=== PATIENT | male | born 1945 | race Caucasian/White ===

== ENCOUNTER 2016-11-03 17:03 | Inpatient (IN) | payer MEDICARE ==
[~2016-11-03] VITALS: Ht 185.4 cm; Wt 88.4 kg
[~2016-11-03 17:03] MED LIST: DABI150 PO; FLUTPOW; LISI-360 PO; LOVA20TA PO; METO50CR PO; NEUR300C PO; NOVO7030P2 SQ; PERC5TAB12 PO; SULF1TAB47 PO; TAB-TAB PO; TAMS0.4C67 PO; VITA500T10 PO
[2016-11-03 17:07] VITALS: BP 104/43; PULSE 65; RESP 16; TEMP 97.9; O2SAT 100
[2016-11-03] MEDS ORDERED: METO-426 PO (17:39)
[2016-11-03] MEDS ORDERED: LYRI150C PO (17:39)
[2016-11-03] MEDS ORDERED: N7030SS SQ (17:39)
[2016-11-03] MEDS ORDERED: PLAV75TA29 PO (17:39)
[2016-11-03] MEDS ORDERED: PRAD150C PO (17:39)
--- NOTE | 2016-11-03 17:53 | PD ---
HPI Chief Complaint: Abnormal Results Time Seen by Provider: 17:32 Travel History International Travel<30 days: No Contact w/Intl Traveler<30days: No Traveled to known affect area: No History of Present Illness HPI This 70-year-old male was sent by his physician because he was found to have a hemoglobin of 7.5. His been having dizzy spells and shortness of breath increasing over the last few months. He had gone to his vest front presser who did not find any problems. He went to his primary care doctor who did blood work today and found the hemoglobin to be 7.5. The patient has a history of diabetes. Over 30 years. 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 He also has a history of atrial fibrillation and is on Pradaxa as well as Plavix. He has not noted any blood in his stool. He does have hypochromic microcytic indices. He did have a colonoscopy with Dr. Braden one time [facility] Past Medical History Hx Anticoagulant Therapy: Yes (PRADAXA, PLAVIX) Arthritis: No Asthma: No Atrial Fibrillation: Yes (had ablation 12/2012) Autoimmune Disease: No Anxiety: No Depression: No Heart Rhythm Problems: Yes Cancer: Yes (SKIN) Cardiovascular Problems: Yes (ATR. FIB (ABLATED)) High Cholesterol: Yes Chemotherapy: No Chest Pain: No Congestive Heart Failure: No COPD: No Cerebrovascular Accident: No Diabetes: Yes (DM 38 YRS NOW) Patient Takes Glucophage: No Diminished Hearing: No Endocrine: Yes Gastrointestinal Disorders: No GERD: No Glaucoma: No Genitourinary: Yes (NEUROGENIC BLADDER/ SELF CATHS) Hepatitis: No Hiatal Hernia: No Hypertension: Yes Immune Disorder: No Kidney Stones: No Musculoskeletal: Yes (OSTEOMYLITIS LEFT LEG) Neurologic: Yes (NEUROPATHY LEGS) Psychiatric: No Reproductive: No Respiratory: No Integumentary: Yes (bl great toe ulcer) Migraines: No Radiation Therapy: No Renal Failure: No Seizures: No Sickle Cell Disease: No Sleep Apnea: No Thyroid Disease: No Ulcer: Yes (SKIN) Tetanus Vaccination: < 5 Years Influenza Vaccination: Yes Past Surgical History Abdominal Surgery: No AICD: No Arteriovenous Shunt: No Cardiac Surgery: Yes (afib /ablation X2) Ear Surgery: No Endocrine Surgery: No Eye Surgery: No Genitourinary Surgery: No Gynecologic Surgery: No Insulin Pump: No Joint Replacement: No Neurologic Surgery: No Oral Surgery: Yes (T & A) Pacemaker: Yes Thoracic Surgery: No Tonsillectomy: Yes Other Surgery: Yes (ablasion 2013/tosillectomy 55 years ago) Social History Alcohol Use: Yes (2 BEERS DAILY) Tobacco Use: No Substance Use: No Allergies-Medications (Allergen,Severity, Reaction): Coded Allergies: No Known Allergies (Unverified , 11/03/16) Reported Meds & Prescriptions Reported Meds & Active Scripts Active Reported Novolin 70/30 Inj (Insulin Human Isoph/Insulin Regular) 1,000 Units/10 Ml Inj 28 Units SQ BID Lyrica (Pregabalin) 150 Mg Cap 150 Mg PO BID Plavix (Clopidogrel Bisulfate) 75 Mg Tab 75 Mg PO DAILY Metoprolol Tartrate 75 Mg Tab 75 Mg PO BID Pradaxa (Dabigatran) 150 Mg Cap 150 Mg PO BID Review of Systems General / Constitutional: No: Fever, Chills Eyes: No: Diploplia, Blurred Vision HENT: Positive: Lightheadedness, No: Headaches Cardiovascular: No: Chest Pain or Discomfort Respiratory: Positive: Shortness of Breath, No: Cough Gastrointestinal: No: Nausea, Vomiting Genitourinary: No: Urgency, Frequency Neurologic: No: Weakness Hematologic/Lymphatic: Positive: Easy Bruising Physical Exam Narrative GENERAL: Well-developed male SKIN: Warm and dry. HEAD: Atraumatic. Normocephalic. EYES: Pupils equal and round. No scleral icterus. No injection or drainage. ENT: No nasal bleeding or discharge. Mucous membranes pink and moist. NECK: Trachea midline. No JVD. CARDIOVASCULAR: Regular rate and rhythm. No murmur appreciated. RESPIRATORY: No accessory muscle use. Clear to auscultation. Breath sounds equal bilaterally. GASTROINTESTINAL: Abdomen soft, non-tender, nondistended. Hepatic and splenic margins not palpable. Stool is brown and guaiac positive MUSCULOSKELETAL: No obvious deformities. No clubbing. No cyanosis. No edema. There is an amputation of the left leg NEUROLOGICAL: Awake and alert. No obvious cranial nerve deficits. Motor grossly within normal limits. Normal speech. PSYCHIATRIC: Appropriate mood and affect; insight and judgment normal. Data Data Last Documented VS Vital Signs Date Time Temp Pulse Resp B/P Pulse Ox O2 Delivery O2 Flow Rate FiO2 11/03/16 18:52 110 17 151/84 99 Room Air 11/03/16 17:07 97.9 Orders Electrocardiogram (11/03/16 17:45) Complete Blood Count With Diff (11/03/16 17:45) Comprehensive Metabolic Panel (11/03/16 17:45) Prothrombin Time / Inr (Pt) (11/03/16 17:45) Act Partial Throm Time (Ptt) (11/03/16 17:45) Urinalysis - C+S If Indicated (11/03/16 17:45) Type And Screen (11/03/16 17:45) Ferritin (11/03/16 17:45) Vitamin B12 (11/03/16 17:45) Folate, Serum (11/03/16 17:45) Chest, Single Ap (11/03/16 18:10) Labs Laboratory Tests Test 11/03/16 17:20 White Blood Count 7.0 TH/MM3 Red Blood Count 4.26 MIL/MM3 Hemoglobin 8.3 GM/DL Hematocrit 27.1 % Mean Corpuscular Volume 63.5 FL Mean Corpuscular Hemoglobin 19.4 PG Mean Corpuscular Hemoglobin 30.5 % Concent Red Cell Distribution Width 16.9 % Platelet Count 267 TH/MM3 Mean Platelet Volume 8.4 FL Neutrophils (%) (Auto) 71.2 % Lymphocytes (%) (Auto) 17.8 % Monocytes (%) (Auto) 8.0 % Eosinophils (%) (Auto) 2.2 % Basophils (%) (Auto) 0.8 % Neutrophils # (Auto) 4.9 TH/MM3 Lymphocytes # (Auto) 1.2 TH/MM3 Monocytes # (Auto) 0.6 TH/MM3 Eosinophils # (Auto) 0.2 TH/MM3 Basophils # (Auto) 0.1 TH/MM3 CBC Comment AUTO DIFF Differential Comment AUTO DIFF CONFIRMED Platelet Estimate NORMAL Platelet Morphology Comment NORMAL Ovalocytes 2+ Prothrombin Time 13.9 SEC Prothromb Time International 1.2 RATIO Ratio Activated Partial 35.7 SEC Thromboplast Time Sodium Level 137 MEQ/L Potassium Level 4.1 MEQ/L Chloride Level 102 MEQ/L Carbon Dioxide Level 25.0 MEQ/L Anion Gap 10 MEQ/L Blood Urea Nitrogen 28 MG/DL Creatinine 1.40 MG/DL Estimat Glomerular Filtration 50 ML/MIN Rate Random Glucose 286 MG/DL Calcium Level 8.3 MG/DL Total Bilirubin 0.5 MG/DL Aspartate Amino Transf 11 U/L (AST/SGOT) Alanine Aminotransferase 16 U/L (ALT/SGPT) Alkaline Phosphatase 90 U/L Total Protein 7.0 GM/DL Albumin 3.6 GM/DL [facility] Medical Decision Making Medical Screen Exam Complete: Yes Emergency Medical Condition: Yes Medical Record Reviewed: Yes Differential Diagnosis Differential includes anemia, GI bleed, Narrative Course Patient's hemoglobin here is 8. His EKG shows regular rhythm at a rate of 112 and is interpreted as atrial flutter with rapid response. Chest x-ray shows clear lung liz. His stool guaiac is positive Diagnosis Primary Impression: Anemia Qualified Code: D50.0 - Iron deficiency anemia due to chronic blood loss Additional Impression: GI bleed Qualified Code: K92.2 - Gastrointestinal hemorrhage, unspecified gastrointestinal hemorrhage type Erick Olmedo MD Nov 03, 2016 17:53
[2016-11-03 17:59] LABS: AUTOMATED NEUTROPHIL # 4.9 TH/MM3 (1.8-7.7); BASOPHIL # 0.1 TH/MM3 (0-0.2); BASOPHIL % 0.8 % (0.0-2.0); EOSINOPHIL # 0.2 TH/MM3 (0-0.4); EOSINOPHIL % 2.2 % (0.0-4.0); HEMATOCRIT 27.1 % (39.0-51.0); LYMPH % 17.8 % (9.0-44.0); LYMPHOCYTE # 1.2 TH/MM3 (1.0-4.8); MEAN CELL VOLUME 63.5 FL (80.0-100.0); MEAN CORPUSCULAR HEMOGLOBIN 19.4 PG (27.0-34.0); MEAN CORPUSCULAR HGB CONC 30.5 % (32.0-36.0); NEUT % 71.2 % (16.0-70.0); PLATELET COUNT 267 TH/MM3 (150-450); RED BLOOD COUNT 4.26 MIL/MM3 (4.50-5.90); RED CELL DISTRIBUTION WIDTH 16.9 % (11.6-17.2)
[2016-11-03 18:01] LABS: HEMO FLAGS AUTO DIFF
[2016-11-03 18:07] LABS: CHLORIDE 102 MEQ/L (98-107); POTASSIUM 4.1 MEQ/L (3.5-5.1); SODIUM (NA) 137 MEQ/L (136-145)
[2016-11-03 18:11] LABS: ANION GAP 10 MEQ/L (5-15); BLOOD UREA NITROGEN 28 MG/DL (7-18)
[2016-11-03 18:13] LABS: APTT (PATIENT) 35.7 SEC (24.3-30.1); INTERNATIONAL NORMALIZED RATIO 1.2 RATIO; PROTHROMBIN TIME - PATIENT 13.9 SEC (9.8-11.6)
[2016-11-03 18:14] LABS: ALT (GPT) 16 U/L (12-78); AST (GOT) 11 U/L (15-37); GLOMERULAR FILTRATION RATE 50 ML/MIN (>89)
[2016-11-03 18:16] LABS: TOTAL BILIRUBIN ADULT 0.5 MG/DL (0.2-1.0)
[2016-11-03 18:17] LABS: ALKALINE PHOSPHATASE 90 U/L (45-117)
[2016-11-03 18:23] LABS: OVALOCYTES 2+ (NORMAL); PLATELET ESTIMATE SMEAR NORMAL (NORMAL); PLATELET MORPHOLOGY NORMAL (NORMAL); SCAN/DIFF AUTO DIFF CONFIRMED
[2016-11-03 18:52] VITALS: BP 151/84; PULSE 110; RESP 17; O2SAT 99
[2016-11-03 19:17] VITALS: BP 145/84; PULSE 100; RESP 18; O2SAT 99
[2016-11-03] MEDS ORDERED: PANTOPRAZOLE SODIUM 40 MG VIAL IV PUSH ONE ×2 (19:30→21:00)
--- NOTE | 2016-11-03 19:44 | RADHPO ---
EXAM DATE/TIME: 11/03/2016 18:55 [place] COMPARISON: No previous studies available for comparison. INDICATIONS : Syncope, blurred vision MEDICAL HISTORY : Diabetes mellitus type II. A-fib SURGICAL HISTORY : Pacemaker. ENCOUNTER: Initial ACUITY: 1 day PAIN SCORE: 4/10 LOCATION: Bilateral chest FINDINGS: A single view of the chest demonstrates the lungs to be symmetrically aerated without evidence of mas s, infiltrate or effusion. The cardiomediastinal contours are unremarkable. Osseous structures are intact. CONCLUSION: 1. Pacer lead overlying right ventricle. No active disease. Sukhi Woods MD on November 03, 2016 at 19:41 Board Certified Radiologist. This report was verified electronically.
[2016-11-03] MEDS ORDERED: SODIUM CHLORIDE 0.9% FLUSH 5 ML FLUSH FLUSH PRN (20:00)
[2016-11-03] MEDS ORDERED: ONDANSETRON HCL 4 MG/2 ML VIAL IVP PRN (20:00)
[2016-11-03] MEDS ORDERED: NALOXONE HCL 0.4 MG/ML AMP IV PRN (20:00)
[2016-11-03] MEDS ORDERED: DEXTROSE 50% IN WATER 50 ML VIAL(D50) IV PUSH PRN (20:00)
[2016-11-03] MEDS ORDERED: GLUCAGON 1 MG/ML VIAL OTHER PRN (20:00)
[2016-11-03 20:11] LABS: BLOOD, URINE NEG (NEG); KETONE, URINE NEG (NEG); NITRITE,URINE NEG (NEG); PH, URINE 5.5 (5.0-8.5)
[2016-11-03 20:12] LABS: FERRITIN 6 NG/ML (26-388)
[2016-11-03 20:12] LABS: GLUCOSE,URINE 1000 OR GREATER mg/dL (NEG)
[2016-11-03 20:21] LABS: COMMENT (UR) CULT NOT INDICATED; CULTURE IF INDICATED CULT NOT INDICATED; RBC, URINE 0-3 /hpf (0-3); SQUAMOUS EPITHELIAL CELL URINE 0-5 /hpf (0-5); URINE COLOR YELLOW (YELLW/STRAW); WBC, URINE 0-2 /hpf (0-5)
[2016-11-03] MEDS: METOPROLOL TARTRATE 25 MG TAB PO SCH (20:24)
[2016-11-03] MEDS: DEXT 5%-NACL 0.9% 1000 ML INJ 1,000 ML IV SCH (20:32)
[2016-11-03 20:43] VITALS: BP 161/86; PULSE 111; RESP 18; O2SAT 99
[2016-11-03] MEDS: PREGABALIN 75 MG CAP PO SCH (20:53)
[2016-11-03] MEDS: SODIUM CHLORIDE 0.9% FLUSH 5 ML FLUSH FLUSH SCH (20:54)
[2016-11-03] MEDS ORDERED: PANTOPRAZOLE INJ 80 MG in SODIUM CHLORIDE 0.9% INJ 100 ML IV SCH (21:00)
[2016-11-03] MEDS ORDERED: PANTOPRAZOLE INJ 80 MG in SODIUM CHLORIDE 0.9% INJ 35 ML IV ONE (21:00)
[2016-11-03] MEDS: PANTOPRAZOLE INJ 80 MG in SODIUM CHLORIDE 0.9% INJ 100 ML IV SCH (21:47)
[2016-11-03 22:00] VITALS: PULSE 108
[2016-11-03 22:17] LABS: HEMATOCRIT 24.7 % (39.0-51.0)
[2016-11-03 22:21] LABS: REVIEW FLAG FINAL
[2016-11-04] VITALS (12 sets, daily range): BP systolic 126–158; BP diastolic 72–99; PULSE 65–109; RESP 15–20; TEMP 95.9–97.7; O2SAT 94–100
[2016-11-04 02:57] LABS: HEMATOCRIT 22.5 % (39.0-51.0)
[2016-11-04 03:01] LABS: REVIEW FLAG FINAL
[2016-11-04] MEDS: METOPROLOL TARTRATE 25 MG TAB PO SCH ×2 (08:36→20:44)
[2016-11-04] MEDS: PREGABALIN 75 MG CAP PO SCH ×2 (08:36→20:45)
[2016-11-04] MEDS: PANTOPRAZOLE INJ 80 MG in SODIUM CHLORIDE 0.9% INJ 100 ML IV SCH (08:39)
[2016-11-04] MEDS: SODIUM CHLORIDE 0.9% FLUSH 5 ML FLUSH FLUSH SCH ×2 (08:39→20:44)
[2016-11-04] MEDS: DEXT 5%-NACL 0.9% 1000 ML INJ 1,000 ML IV SCH ×2 (08:39→20:51)
[2016-11-04] MEDS ORDERED: ATOR40TA16 PO (08:46)
[2016-11-04] MEDS ORDERED: DEXTROSE 5%-LACTATED RING INJ 1,000 ML IV SCH (12:45)
[2016-11-04 13:12] LABS: AUTOMATED NEUTROPHIL # 3.9 TH/MM3 (1.8-7.7); BASOPHIL % 0.5 % (0.0-2.0); EOSINOPHIL # 0.1 TH/MM3 (0-0.4); EOSINOPHIL % 2.4 % (0.0-4.0); HEMATOCRIT 27.3 % (39.0-51.0); LYMPH % 14.2 % (9.0-44.0); LYMPHOCYTE # 0.7 TH/MM3 (1.0-4.8); MEAN CELL VOLUME 68.5 FL (80.0-100.0); MEAN CORPUSCULAR HEMOGLOBIN 21.7 PG (27.0-34.0); MEAN CORPUSCULAR HGB CONC 31.6 % (32.0-36.0); MONO % 8.7 % (0.0-8.0); NEUT % 74.2 % (16.0-70.0); PLATELET COUNT 193 TH/MM3 (150-450); RED BLOOD COUNT 3.98 MIL/MM3 (4.50-5.90); RED CELL DISTRIBUTION WIDTH 21.2 % (11.6-17.2); WHITE BLOOD COUNT 5.1 TH/MM3 (4.0-11.0)
[2016-11-04 13:15] LABS: HEMO FLAGS DIFF FINAL; REVIEW FLAG FINAL
[2016-11-04 13:18] LABS: POTASSIUM 4.2 MEQ/L (3.5-5.1)
[2016-11-04 13:21] LABS: BICARBONATE 25.4 MEQ/L (21.0-32.0)
[2016-11-04] MEDS: PANTOPRAZOLE SODIUM 40 MG VIAL IV PUSH SCH ×2 (13:32→20:44)
--- NOTE | 2016-11-04 14:00 | HHI.HP ---
cc: Brian Harris MD [facility] Service [facility] Primary Care Physician Brian Harris MD Admission Diagnosis ANEMIA, GI BLEED, COAGULOPATHY Diagnoses: Chief Complaint: sent by pcp Travel History International Travel<30 Days: No Contact w/Intl Traveler <30 Da: No Traveled to Known Affected Are: No History of Present Illness Patient seen and evaluated in follow-up today after his primary care doctor sent him from his office to the emergency room due to abnormal labs. Patient is a very pleasant 70-year-old gentleman who had increasing dyspnea, dizziness and lightheadedness. He notes no chest pain was not short of breath but did have abnormal labs in the form of low hemoglobin as outpatient. He had seen his reconciliation accountant week before and was referred back to his primary doctor who did a bunch of labs and he was found to be anemic and sent to the hospital. Patient does take Pradaxa and Plavix due to peripheral artery disease and atrial fibrillation. He did not note any bleeding was occurring a however was Hemoccult positive in the emergency room with an increased heart rate. Patient was found to have a hemoglobin of 6.8 and has been given 2 units of packed red blood cells by transfusion. At this point isn't seen by gastroenterology and recommended for upper and lower endoscopy. Patient is doing well after blood transfusion and his Hemoccult was now 8.6. For these reasons the patient has been admitted to the hospital Review of Systems Constitutional: COMPLAINS OF: Dizziness (dizzy), DENIES: Diaphoretic episodes , Fatigue, Fever, Weight gain, Weight loss, Chills, Change in appetite, Night Sweats Endocrine: DENIES: Heat/cold intolerance, Polydipsia, Polyuria, Polyphagia Eyes: DENIES: Blurred vision, Diplopia, Eye inflammation, Eye pain, Vision loss , Photosensitivity, Double Vision Respiratory: DENIES: Apneas, Cough, Snoring, Wheezing, Hemoptysis, Sputum production, Shortness of breath Cardiovascular: DENIES: Chest pain, Palpitations, Syncope, Dyspnea on Exertion , PND, Lower Extremity Edema, Orthopnea, Claudication Gastrointestinal: DENIES: Abdominal pain, Black stools, Bloody stools, Constipation, Diarrhea, Nausea, Vomiting, Difficulty Swallowing, Anorexia Genitourinary: DENIES: Sexual dysfunction, Urinary frequency, Urinary incontinence, Urgency, Hematuria, Dysuria, Nocturia, Penile Discharge, Testicular Pain, Testicular Swelling Musculoskeletal: DENIES: Joint pain, Muscle aches, Stiffness, Joint Swelling, Back pain, Neck pain Integumentary: DENIES: Abnormal pigmentation, Nail changes, Pruritus, Rash Hematologic/lymphatic: DENIES: Bruising, Lymphadenopathy Immunologic/allergic: DENIES: Eczema, Urticaria Neurologic: DENIES: Abnormal gait, Headache, Localized weakness, Paresthesias, Seizures, Speech Problems, Tremor, Poor Balance Psychiatric: DENIES: Anxiety, Confusion, Mood changes, Depression, Hallucinations, Agitation, Suicidal Ideation, Homicidal Ideation, Delusions Past Family Social History Past Medical History Defibrillator Left BKA Right great toe resection Ablation for A. fib Reported Medications Reviewed and the medical record Allergies: Coded Allergies: No Known Allergies (Unverified , 11/03/16) Active Ordered Medications Reviewed in the medical record Family History No family history of intestinal bleeding Social History Lives with his family, no tobacco or alcohol dependency Physical Exam Vital Signs Vital Signs Date Time Temp Pulse Resp B/P Pulse Ox O2 Delivery O2 Flow Rate FiO2 11/04/16 12:34 97.4 100 16 144/88 98 11/04/16 09:07 97.6 109 16 129/85 98 11/04/16 09:00 97.6 109 18 129/85 98 11/04/16 08:40 97.2 106 20 147/90 94 11/04/16 08:16 97.2 106 18 144/90 11/04/16 07:15 106 11/04/16 06:11 97.7 108 20 131/78 11/04/16 05:34 97.3 103 20 126/83 94 11/04/16 04:48 97.1 103 18 126/83 94 11/04/16 00:00 95.9 65 18 139/72 100 11/03/16 22:00 108 11/03/16 22:00 108 11/03/16 21:40 18 99 11/03/16 21:39 18 11/03/16 20:43 111 18 161/86 99 Room Air 11/03/16 19:17 100 18 99 Room Air 11/03/16 19:17 100 18 145/84 99 Room Air 11/03/16 18:52 110 17 151/84 99 Room Air 11/03/16 17:22 112 100 Room Air 11/03/16 17:07 97.9 65 16 104/43 100 Physical Exam GENERAL: This is a well-nourished, well-developed patient, in no apparent distress. SKIN: No rashes, ecchymoses or lesions. Cool and dry. HEAD: Atraumatic. Normocephalic. No temporal or scalp tenderness. EYES: Pupils equal round and reactive. Extraocular motions intact. No scleral icterus. No injection or drainage. ENT: Nose without bleeding, purulent drainage or septal hematoma. Throat without erythema, tonsillar hypertrophy or exudate. Uvula midline. Airway patent. NECK: Trachea midline. No JVD or lymphadenopathy. Supple, nontender, no meningeal signs. CARDIOVASCULAR: Regular rate and rhythm without murmurs, gallops, or rubs. RESPIRATORY: Clear to auscultation. Breath sounds equal bilaterally. No wheezes , rales, or rhonchi. GASTROINTESTINAL: Abdomen soft, non-tender, nondistended. No hepato-splenomegaly , or palpable masses. No guarding. MUSCULOSKELETAL: Left BKA, right great toe amputated, other 3 Extremities without clubbing, cyanosis, or edema. No joint tenderness, effusion, or edema noted. No calf tenderness. Negative Homans sign bilaterally. NEUROLOGICAL: Awake and alert. Cranial nerves II through XII intact. Motor and sensory grossly within normal limits. Five out of 5 muscle strength in all muscle groups. Normal speech. Laboratory Laboratory Tests Test 11/03/16 11/03/16 11/03/16 11/04/16 17:20 19:30 22:02 02:15 White Blood Count 7.0 Red Blood Count 4.26 Hemoglobin 8.3 7.4 6.8 Hematocrit 27.1 24.7 22.5 Mean Corpuscular Volume 63.5 Mean Corpuscular Hemoglobin 19.4 Mean Corpuscular Hemoglobin 30.5 Concent Red Cell Distribution Width 16.9 Platelet Count 267 Mean Platelet Volume 8.4 Neutrophils (%) (Auto) 71.2 Lymphocytes (%) (Auto) 17.8 Monocytes (%) (Auto) 8.0 Eosinophils (%) (Auto) 2.2 Basophils (%) (Auto) 0.8 Neutrophils # (Auto) 4.9 Lymphocytes # (Auto) 1.2 Monocytes # (Auto) 0.6 Eosinophils # (Auto) 0.2 Basophils # (Auto) 0.1 CBC Comment AUTO DIFF Differential Comment AUTO DIFF CONFIRMED Platelet Estimate NORMAL Platelet Morphology Comment NORMAL Ovalocytes 2+ Prothrombin Time 13.9 Prothromb Time International 1.2 Ratio Activated Partial 35.7 Thromboplast Time Sodium Level 137 Potassium Level 4.1 Chloride Level 102 Carbon Dioxide Level 25.0 Anion Gap 10 Blood Urea Nitrogen 28 Creatinine 1.40 Estimat Glomerular Filtration 50 Rate Random Glucose 286 Calcium Level 8.3 Ferritin 6 Total Bilirubin 0.5 Aspartate Amino Transf 11 (AST/SGOT) Alanine Aminotransferase 16 (ALT/SGPT) Alkaline Phosphatase 90 Total Protein 7.0 Albumin 3.6 Vitamin B12 Level 354 Folate GREATER THAN 20.0 Blood Type A POSITIVE Antibody Screen NEGATIVE Urine Color YELLOW Urine Turbidity CLEAR Urine pH 5.5 Urine Specific [place] 1.012 Urine Protein NEG Urine Glucose (UA) 1000 OR GREATER Urine Ketones NEG Urine Occult Blood NEG Urine Nitrite NEG Urine Bilirubin NEG Urine Leukocyte Esterase NEG Urine RBC 0-3 Urine WBC 0-2 Urine Squamous Epithelial 0-5 Cells Urine Bacteria NONE Microscopic Urinalysis Comment CULT NOT INDICATED Test 11/04/16 11/04/16 03:34 12:50 Blood Type A POSITIVE Crossmatch Leukocyte-Reduced Red Blood Cells Blood Bank Comment White Blood Count 5.1 Red Blood Count 3.98 Hemoglobin 8.6 Hematocrit 27.3 Mean Corpuscular Volume 68.5 Mean Corpuscular Hemoglobin 21.7 Mean Corpuscular Hemoglobin 31.6 Concent Red Cell Distribution Width 21.2 Platelet Count 193 Mean Platelet Volume 7.7 Neutrophils (%) (Auto) 74.2 Lymphocytes (%) (Auto) 14.2 Monocytes (%) (Auto) 8.7 Eosinophils (%) (Auto) 2.4 Basophils (%) (Auto) 0.5 Neutrophils # (Auto) 3.9 Lymphocytes # (Auto) 0.7 Monocytes # (Auto) 0.4 Eosinophils # (Auto) 0.1 Basophils # (Auto) 0.0 CBC Comment DIFF FINAL Differential Comment Sodium Level 142 Potassium Level 4.2 Chloride Level 108 Carbon Dioxide Level 25.4 Anion Gap 9 Blood Urea Nitrogen 17 Creatinine 1.10 Estimat Glomerular Filtration 66 Rate Random Glucose 262 Calcium Level 7.9 Result Diagram: 11/04/16 1250 11/04/16 1250 Imaging Last Impressions Chest X-Ray 11/03/16 1810 Signed Impressions: Service Date/Time: Thursday, November 03, 2016 18:55 - CONCLUSION: 1. Pacer lead overlying right ventricle. No active disease. Sukhi Woods MD Assessment and Plan Problem List: (1) Anemia ICD Code: D64.9 Status: Acute Plan: due to gi bleed Post transfusion of 2 units of packed red blood cells. Patient will need endoscopy. His Pradaxa and Plavix have been held (2) GI bleed ICD Code: K92.2 Status: Acute Plan: Etiology unclear, continue Protonix GI consult appreciated Will need upper and lower endoscopy (3) DM2 (diabetes mellitus, type 2) ICD Code: E11.9 Status: Acute Plan: Home insulins been held given patient's decreased intake in preparation for endoscopy We'll follow on sliding scale (4) Afib ICD Code: I48.91 Status: Acute Plan: Status post ablation, patient on Pradaxa which has been held due to GI bleeding Assessment and Plan Plan of care to be determined by Hospital course Code Status Full code Discussed Condition With Patient, nursing team Problem Qualifiers (1) Anemia: Qualified Code: D50.0 - Iron deficiency anemia due to chronic blood loss (2) GI bleed: Qualified Code: K92.2 - Gastrointestinal hemorrhage, unspecified gastrointestinal hemorrhage type Saira Mast MD Nov 04, 2016 14:00
--- NOTE | 2016-11-04 14:32 | EKG ---
Date Performed: 11/03/2016 Time Performed: 18:04:22 PTAGE: 70 years EKG: Supraventricular tachycardia which is probably re-entry with a long RP interval although a 2:1 atrial flutter cannot be excluded. The rhythm disturbance is new since prior tracing and with the tachycardia the patient is overriding the pacemaker so that the tracings are not directly comparable . Inferior/lateral ST-T changes are nonspecific Abnormal ECG PREVIOUS TRACING : 09/19/2013 06.23 DOCTOR: Cherelle Diaz Interpretating Date/Time 11/04/2016 14:31:34
--- NOTE | 2016-11-04 15:15 | MB ---
cc: JAYCEE ROONEY DATE OF CONSULTATION: 11/04/2016 DATE OF : 1945 REASON FOR CONSULTATION Anemia, fecal occult blood positive. BRIEF MEDICAL HISTORY Mr. Dominguez is a very pleasant 70-year-old gentleman with past medical history significant for atrial fibrillation, peripheral vascular disease, diabetes and colonic polyps who presented to the hospital after he was found to have significant anemia with a hemoglobin of 7.5 on blood work done by his primary care physician. He reports feeling tired, dizzy, light-headed and cravings ice chips as well as shortness of breath on minimal exertion. He denies any gross GI bleeding, usually he has a bowel movement every other day, brown in color and formed. He denies any significant reflux or heartburn. His stool was checked in the emergency room for occult blood and tested positive. He did have a colonoscopy done by Dr. Braden in 2014 where a few polyps were removed; one of them had a focus of high-grade dysplasia. Recommended repeat procedure was in three years which will be 2018. On repeat blood work this morning he was found to have a hemoglobin of 6.8, microcytic, concerning for iron deficiency anemia. GI has been consulted to evaluate possible GI bleeding. PAST MEDICAL HISTORY 1. Atrial fibrillation. 2. Diabetes. 3. Peripheral vascular disease. 4. Hyperlipidemia. 5. Colonic polyps. PAST SURGICAL HISTORY 1. Left [id number] amputation. 2. Colonoscopy. 3. Tonsillectomy. SOCIAL HISTORY He does report drinking two beers a day. No significant tobacco or drug use. ALLERGIES He has no known drug allergies. FAMILY HISTORY No history of colon cancer. MEDICATIONS 1. Novolin 70/30, 28 units b.i.d. 2. Lyrica 150 mg p.o. b.i.d. 3. Plavix 75 p.o. daily. 4. Metoprolol 75 mg p.o. b.i.d. 5. Pradaxa 150 mg p.o. b.i.d. REVIEW OF SYSTEMS Significant for fatigue, dizziness, shortness of breath. Otherwise a 14-point medical review of systems is negative. PHYSICAL EXAMINATION VITAL SIGNS: Temperature 97.4, heart rate 100, blood pressure 144/88, satting 98% on room air. GENERAL: A well-developed male in no acute distress, lying comfortably in bed. HEENT: Normocephalic, atraumatic. PERRLA. Anicteric sclera. NECK: Supple. No JVD. No lymphadenopathy. CARDIOVASCULAR: Tachycardic. S1, S2. No murmurs or gallops. PULMONARY: Clear to auscultation bilaterally. No wheezing or rhonchi. ABDOMEN: Soft, nontender, nondistended. No hepatosplenomegaly appreciated. Bowel sounds are present in all four quadrants. EXTREMITIES: He has a left [id number] amputation. No significant edema. NEUROLOGIC: He is alert and oriented x3. Cranial nerves intact. Strength 5/5 throughout. No focal deficits. LABORATORY White blood cell count 7, hemoglobin 6.8, hematocrit 22.5, platelet count 267. Sodium 137, potassium 4.1, chloride 102, bicarb 25, creatinine 1.4, BUN 28, ferritin 6, AST 11, ALT 16, alkaline phosphatase 90, total protein 7, albumin 3.6. INR of 1.2. IMAGING Chest x-ray showed no acute cardiopulmonary disease. ASSESSMENT Mr. Dominguez is a pleasant 70-year-old gentleman with past history significant for atrial fibrillation, diabetes, peripheral vascular disease and colonic polyps presenting with significant iron deficiency anemia, no gross GI bleeding noted. The patient tested positive for fecal occult blood. Currently hemodynamically stable, received transfusion this morning, pending repeat hemoglobin. No acute complaints at this time. PLAN 1. Iron deficiency anemia/fecal occult blood positive. Concerns for possible GI loss based on recent testing. The patient is taking Plavix and Pradaxa which makes him a high risk for bleeding. Recommend to continue supportive care. Check hemoglobin every 6 hours and transfuse as needed to keep hemoglobin above 7. We will plan to perform EGD and colonoscopy tomorrow for evaluation of anemia. Will keep him on a clear liquid diet throughout today and place him n.p.o. at midnight for procedures. We will plan to prep with GoLYTELY on a split dosing regimen. For now we cam switch Protonix drip to 40 mg IV q.12h., avoid any NSAIDs or anticoagulants. 2. Other medical problems to be addressed by the primary team. We would like to thank Dr. Mast for this consultation and allowing us to participate in the care of Mr. Dominguez. We will follow along with you. Please call us with any questions or concerns. MD FREDI Diallo /12:50 PM /2:49 PM
[2016-11-04] MEDS: INSULIN DETEMIR 100 UNITS/ML VIAL SQ SCH (16:29)
[2016-11-04] MEDS: PEG (High)/E-LYTE SOLN 4000 ML BTL PO SCH (18:01)
[2016-11-05] VITALS (7 sets, daily range): BP systolic 132–146; BP diastolic 82–89; PULSE 91–110; RESP 16–20; TEMP 96–98.2; O2SAT 96–100
[2016-11-05] MEDS: PEG (High)/E-LYTE SOLN 4000 ML BTL PO SCH (02:15)
[2016-11-05 06:30] LABS: AUTOMATED NEUTROPHIL # 4.4 TH/MM3 (1.8-7.7); BASOPHIL % 0.5 % (0.0-2.0); EOSINOPHIL # 0.1 TH/MM3 (0-0.4); EOSINOPHIL % 2.4 % (0.0-4.0); HEMATOCRIT 29.1 % (39.0-51.0); LYMPH % 9.8 % (9.0-44.0); LYMPHOCYTE # 0.5 TH/MM3 (1.0-4.8); MEAN CELL VOLUME 67.8 FL (80.0-100.0); MEAN CORPUSCULAR HEMOGLOBIN 20.8 PG (27.0-34.0); MEAN CORPUSCULAR HGB CONC 30.6 % (32.0-36.0); MONO % 9.3 % (0.0-8.0); PLATELET COUNT 199 TH/MM3 (150-450); RED BLOOD COUNT 4.28 MIL/MM3 (4.50-5.90); RED CELL DISTRIBUTION WIDTH 20.9 % (11.6-17.2); WHITE BLOOD COUNT 5.5 TH/MM3 (4.0-11.0)
[2016-11-05 06:35] LABS: HEMO FLAGS AUTO DIFF
[2016-11-05 07:23] LABS: OVALOCYTES 1+ (NORMAL); SCAN/DIFF AUTO DIFF CONFIRMED
[2016-11-05] MEDS: SODIUM CHLORIDE 0.9% FLUSH 5 ML FLUSH FLUSH SCH (08:50)
[2016-11-05] MEDS: DEXT 5%-NACL 0.9% 1000 ML INJ 1,000 ML IV SCH (08:50)
[2016-11-05] MEDS: PANTOPRAZOLE SODIUM 40 MG VIAL IV PUSH SCH (08:51)
[2016-11-05] MEDS: METOPROLOL TARTRATE 25 MG TAB PO SCH (08:51)
[2016-11-05] MEDS: INSULIN DETEMIR 100 UNITS/ML VIAL SQ SCH (08:52)
[2016-11-05] MEDS: PREGABALIN 75 MG CAP PO SCH (08:52)
--- NOTE | 2016-11-05 12:16 | HHI.PR ---
Subjective Remarks Patient has not noted any blood in his stool overnight or as an outpatient. He has not yet been up out of bed to see if he still feels dizzy or lightheaded. Patient states that he sees his vascular surgeon Dr. Wheeler yearly. He denies ever having a stent in his leg or bypass surgery, he has only had "Roto-Rooter" . He was placed on the Plavix a year ago by Dr. Wheeler. Objective Vitals Vital Signs Date Time Temp Pulse Resp B/P Pulse Ox O2 Delivery O2 Flow Rate FiO2 11/05/16 08:00 98.2 110 18 140/89 99 11/05/16 04:00 96.0 104 20 132/82 100 11/05/16 00:00 97.9 91 20 137/85 98 11/04/16 21:45 18 11/04/16 20:00 97.5 102 20 158/99 100 11/04/16 17:45 96.5 92 15 155/95 99 11/04/16 12:34 97.4 100 16 144/88 98 I/O 11/04/16 11/04/16 11/04/16 11/05/16 11/05/16 11/05/16 07:00 15:00 23:00 07:00 15:00 23:00 Intake Total 900 ml 2460 ml 0 ml Output Total 1250 ml 400 ml 750 ml Balance -350 ml 2060 ml -750 ml Intake Oral 0 ml 0 ml Oral Supplement 2000 ml IV Total 900 ml 460 ml Output Urine Total 1250 ml 400 ml 750 ml # Voids 5 1 # Bowel Movements 0 8 8 Result Diagram: 11/05/16 0600 11/04/16 1250 Objective Remarks GENERAL: Well-nourished, well-developed pleasant male patient. SKIN: Warm and dry. HEAD: Normocephalic. EYES: No scleral icterus. No injection or drainage. NECK: Supple, trachea midline. No JVD or lymphadenopathy. CARDIOVASCULAR: Regular rate and rhythm without murmurs, gallops, or rubs. RESPIRATORY: Breath sounds equal bilaterally. No accessory muscle use. GASTROINTESTINAL: Abdomen soft, non-tender, nondistended. EXTREMITIES: No cyanosis, or edema. Status post remote left BKA with well- healed stump. NEUROLOGICAL: Awake, alert, and oriented x 3. Non-focal. A/P Problem List: (1) Anemia ICD Code: D64.9 Status: Acute (2) GI bleed ICD Code: K92.2 Status: Acute (3) DM2 (diabetes mellitus, type 2) ICD Code: E11.9 Status: Acute (4) Afib ICD Code: I48.91 Status: Acute Assessment and Plan -Slow GI bleeding with positive hemoglobin. Patient had not noticed any blood in his stool and the anemia was picked up by his PCP who referred him to the emergency department. The patient is on Pradaxa for A. fib and Plavix for history of peripheral vascular disease. I discussed with his vascular surgeon Dr. Wheeler who agreed with stopping Plavix. Status post 2 units packed blood cell transfusion with improvement of hemoglobin to 8.9. Patient is for EGD and colonoscopy today with GI. Depending on what this shows he may be able to be discharged home later today or if not in the morning. Patient is hoping to go home today if possible. -Persistent A. fib. Followed by Dr. Colin. Resume Pradaxa if cleared by GI after procedures today. Continue metoprolol 75 mg twice a day. -Type 2 diabetes continue insulin sliding scale with Levemir. Problem Qualifiers (1) Anemia: Qualified Code: D50.0 - Iron deficiency anemia due to chronic blood loss (2) GI bleed: Qualified Code: K92.2 - Gastrointestinal hemorrhage, unspecified gastrointestinal hemorrhage type Susy Clarke MD Nov 05, 2016 12:16
--- NOTE | 2016-11-05 14:46 | HHI.GIFU ---
Subjective Remarks Pt doing well, no complaints. Completed bowel prep for procedures today. No gross GI bleed noted. Objective Vitals I&O Vital Signs Date Time Temp Pulse Resp B/P Pulse Ox O2 Delivery O2 Flow Rate FiO2 11/05/16 12:00 97.7 99 18 136/85 96 11/05/16 12:00 97.7 99 18 136/85 96 11/05/16 08:00 98.2 110 18 140/89 99 11/05/16 04:00 96.0 104 20 132/82 100 11/05/16 00:00 97.9 91 20 137/85 98 11/04/16 21:45 18 11/04/16 20:00 97.5 102 20 158/99 100 11/04/16 17:45 96.5 92 15 155/95 99 I/O 11/04/16 11/04/16 11/04/16 11/05/16 11/05/16 11/05/16 07:00 15:00 23:00 07:00 15:00 23:00 Intake Total 900 ml 2460 ml 0 ml Output Total 1250 ml 400 ml 750 ml Balance -350 ml 2060 ml -750 ml Intake Oral 0 ml 0 ml Oral Supplement 2000 ml IV Total 900 ml 460 ml Output Urine Total 1250 ml 400 ml 750 ml # Voids 5 1 # Bowel Movements 0 8 8 Laboratory Laboratory Tests Test 11/05/16 06:00 White Blood Count 5.5 Red Blood Count 4.28 Hemoglobin 8.9 Hematocrit 29.1 Mean Corpuscular Volume 67.8 Mean Corpuscular Hemoglobin 20.8 Mean Corpuscular Hemoglobin 30.6 Concent Red Cell Distribution Width 20.9 Platelet Count 199 Mean Platelet Volume 7.8 Neutrophils (%) (Auto) 78.0 Lymphocytes (%) (Auto) 9.8 Monocytes (%) (Auto) 9.3 Eosinophils (%) (Auto) 2.4 Basophils (%) (Auto) 0.5 Neutrophils # (Auto) 4.4 Lymphocytes # (Auto) 0.5 Monocytes # (Auto) 0.5 Eosinophils # (Auto) 0.1 Basophils # (Auto) 0.0 CBC Comment AUTO DIFF Differential Comment AUTO DIFF CONFIRMED Ovalocytes 1+ Physical Exam HEENT: Pupils round and reactive to light; normocephalic; atraumatic; no jaundice. Throat is clear. NECK: Neck is supple, no JVD, no lymphadenopathy. ABDOMEN: Soft, nondistended, nontender; no hepatosplenomegaly; bowel sounds are present in all four quadrants. SKIN: Normal; no rash; no jaundice. SKEIN DRIER: No focal deficits; alert and oriented times three. Assessment and Plan Assessment: (1) Anemia (2) Fecal occult blood test positive Plan 1. Iron deficiency anemia/positive fecal occult blood - continue supportive care - monitor H&H daily, transfuse as needed to keep hb > 7 - continue PPI IV 40mg BID - hold anticoagulation and antiplatelet agents for now - plan for EGD and colonoscopy today - NPO for procedures 2. All other medical problems to be addressed by primary team Problem Qualifiers (1) Anemia: Qualified Code: D50.0 - Iron deficiency anemia due to chronic blood loss Venancio Alonso MD Nov 05, 2016 14:46
--- NOTE | 2016-11-05 16:42 | PD.PROCEDR ---
GI Procedure PROCEDURE DATE: Nov 05, 2016 INDICATION FOR PROCEDURE anemia, fecal occult positive PROCEDURE: The procedure, risks and benefits were discussed with Mr. Dominguez and informed consent was obtained. Anesthesia sedated him with Diprivan. He was placed in the left lateral decubitus position. EGD: The Pentax videoscope was introduced through the oropharynx and advanced to the second portion of the duodenum under direct visualization. Retroflexion was performed in the stomach. FINDINGS: - normal esophagus - few small gastric erosions. Biopsied - normal duodenal mucosa. Biopsied Colonoscopy: The Pentax videoscope was introduced through the rectum and advanced to cecum. Retroflexion was performed in the rectum. Colonic prep was good. FINDINGS: - 3 cm ulcerated polyp/mass in transverse colon. Biopsied. - One 3-5 mm polyp in descending colon. Polypectomy performed with cold biopsy forceps - One 5-10 mm polyp in sigmoid colon. Polypectomy performed with cold snare. ESTIMATED BLOOD LOSS: minimal COMPLICATIONS: none PLAN: - await pathology report - resume regular diet - hold Pradaxa and Plavix - Plan for possible endoscopic mucosal resection vs surgery based on biopsy results - PPI 20mg PO daily - avoid NSAID's - f/u with Dr. Braden as outpatient Venancio Aolnso MD Nov 05, 2016 16:42
[2016-11-05] MEDS ORDERED: PRAD150C PO (16:59)
[2016-11-05] MEDS ORDERED: PROPOFOL 200 MG/20 ML AMP IV ONE (17:57)
== END 2016-11-05 17:58 | disposition home or self-care (01) | DRG 378 ==
LOC: PHED 17:03 → INTOOBSV 19:51 → PHEDA 19:51 → PH3A 21:33 → OBSVTOIN 11-04 15:40
PROVIDERS: ADMIT Family Medicine; ATTEND Family Medicine
PROC: 30233N1 Transfusion of Nonautologous Red Blood Cells into Peripheral Vein, Percutaneous Approach (ICD-10-PCS; 2016-11-04)
PROC: 0DBN8ZX Excision of Sigmoid Colon, Via Natural or Artificial Opening Endoscopic, Diagnostic (ICD-10-PCS; 2016-11-05)
PROC: 0DB98ZX Excision of Duodenum, Via Natural or Artificial Opening Endoscopic, Diagnostic (ICD-10-PCS; 2016-11-05)
PROC: 0DB68ZX Excision of Stomach, Via Natural or Artificial Opening Endoscopic, Diagnostic (ICD-10-PCS; 2016-11-05)
PROC: 0DBL8ZX Excision of Transverse Colon, Via Natural or Artificial Opening Endoscopic, Diagnostic (ICD-10-PCS; principal; 2016-11-05 15:00)
PROC: 0DBM8ZX Excision of Descending Colon, Via Natural or Artificial Opening Endoscopic, Diagnostic (ICD-10-PCS; 2016-11-05 15:00)
DX: K92.2 Gastrointestinal hemorrhage, unspecified (principal); I48.1 Persistent atrial fibrillation; E11.51 Type 2 diabetes mellitus with diabetic peripheral angiopathy without gangrene; N31.9 Neuromuscular dysfunction of bladder, unspecified; K25.9 Gastric ulcer, unspecified as acute or chronic, without hemorrhage or perforation; D12.4 Benign neoplasm of descending colon; D12.5 Benign neoplasm of sigmoid colon; D50.0 Iron deficiency anemia secondary to blood loss (chronic); E78.5 Hyperlipidemia, unspecified; Z79.4 Long term (current) use of insulin; Z79.01 Long term (current) use of anticoagulants
CPT/HCPCS: 36430; 71010; 80048; 80053; 81001; 82607; 82728; 82746; 82948; 85014; 85018; 85025; 85610; 85730; 86850; 86900; 86901; 86920; 88305; 93005; C9113; G0378; J7042; P9016

== ENCOUNTER 2016-12-16 07:40 | Inpatient (IN) | payer MEDICARE ==
[~2016-12-16] VITALS: Ht 182.9 cm; Wt 93.0 kg
[~2016-12-16 07:40] MED LIST changes: -FE FCAP PO; -HYDR-3516 PO; -PLAV75TA29 PO; -VITA10004 PO; -VITA10007 PO
[2016-12-16] MEDS ORDERED: VITA10004 PO (16:32)
[2016-12-16] MEDS ORDERED: VITA10007 PO (16:32)
[2016-12-16] MEDS ORDERED: PLAV75TA29 PO (16:32)
[2016-12-23 11:00] VITALS: BP 129/75; PULSE 65; RESP 18; TEMP 97.8; O2SAT 95
[2016-12-23] MEDS ORDERED: NORMOSOL R INJ 2,000 ML IV ONE (12:00)
[2016-12-23] MEDS ORDERED: NEOSTIGMINE 3 MG/3 ML SYR IV ONE (12:00)
[2016-12-23] MEDS ORDERED: PROPOFOL 200 MG/20 ML AMP IV ONE (12:00)
[2016-12-23] MEDS ORDERED: ONDANSETRON HCL 4 MG/2 ML VIAL IV PUSH ONE (12:00)
[2016-12-23] MEDS ORDERED: FE FCAP PO (12:28)
[2016-12-23 12:29] VITALS: BP 133/69; PULSE 65; RESP 18; TEMP 97.9; O2SAT 97
[2016-12-23] MEDS ORDERED: METOPROLOL TARTRATE 25 MG TAB PO PRN (12:30)
[2016-12-23] MEDS ORDERED: INSULIN HUMAN REGULAR 1,000 UNITS/10 ML VIAL SQ PRN (12:30)
[2016-12-23] MEDS ORDERED: LACTATED RINGER'S 1000 ML IV SCH (12:30)
[2016-12-23] MEDS ORDERED: SODIUM CHLORID 0.9% 500 ML IV SCH (12:30)
[2016-12-23] MEDS ORDERED: ALVIMOPAN 12 MG CAPSULE - On Call PO SCH (12:45)
[2016-12-23] MEDS ORDERED: ceFAZolin 1,000 MG/NS 100 ML IV SCH ×2 (12:45)
[2016-12-23] MEDS ORDERED: DEXT 5%-NACL 0.9% 1000 ML INJ 1,000 ML IV SCH (12:45)
[2016-12-23] MEDS ORDERED: METRONIDAZOLE 500 MG/100 ML ISONTONIC SOLN IV SCH (13:00)
[2016-12-23] MEDS ORDERED: POVIDONE IODINE 5% (ANTISEPSIS KIT) 4 APPLICATIONS EACH NARE SCH (13:00)
[2016-12-23] MEDS ORDERED: CHLORHEXIDINE GLUCONATE 2 % 1 PACK (2 CLOTHS) TOP SCH (13:00)
--- NOTE | 2016-12-23 13:15 | PD.HP.UP ---
H&P Update Note The Pre-Admit History and Physical Examination regarding the above named patient was reviewed (including, but not limited to, vital signs, heart, lungs, co-morbid conditions), and upon re-examination it is noted that: the patient's condition has not significantly changed since the last examination. Kyle Mccoy MD Dec 23, 2016 13:15
[2016-12-23] MEDS ORDERED: GLUCAGON 1 MG/ML VIAL ONE (13:37)
[2016-12-23] MEDS ORDERED: BUPIVACAINE/EPINEPHRINE 0.5% PF 30 ML VIAL ONE (13:39)
[2016-12-23] MEDS ORDERED: BUPIVACAINE HCL PF 0.5% 30 ML VIAL INFIL ONE (14:14)
[2016-12-23] MEDS ORDERED: BUPIVACAINE HCL PF 0.5% 30 ML VIAL ONE (14:25)
[2016-12-23] MEDS ORDERED: ENALAPRILAT 1.25 MG/ML VIAL IV PRN (15:45)
[2016-12-23] MEDS ORDERED: Post-op Orders (for Pharmacy) MISC XX ONE (15:45)
[2016-12-23] MEDS ORDERED: POTASSIUM CHLOR 40 MEQ PREMIX 100 ML IV PRN (15:45)
[2016-12-23] MEDS ORDERED: BENZOCAINE 6 MG/MENTHOL 10 MG LOZENGE SUCK-ON PRN (15:45)
[2016-12-23] MEDS ORDERED: ACETAMINOPHEN 325 MG TAB PO PRN (15:45)
[2016-12-23] MEDS ORDERED: ACETAMINOPHEN/HYDROcodone 325 MG/5 MG TAB PO PRN ×2 (15:45)
[2016-12-23] MEDS ORDERED: NALOXONE HCL 0.4 MG/ML AMP IV PRN (15:45)
[2016-12-23] MEDS ORDERED: ENALAPRILAT 2.5 MG/2 ML VIAL IV PRN (15:45)
[2016-12-23] MEDS ORDERED: BUPIVACAINE HCL PF 0.5% 30 ML VIAL NB SCH (15:45)
[2016-12-23] MEDS ORDERED: ONDANSETRON HCL 4 MG/2 ML VIAL IV PRN (15:45)
[2016-12-23] MEDS ORDERED: SODIUM CHLORIDE 0.9% FLUSH 5 ML FLUSH IVF PRN (15:45)
[2016-12-23] MEDS ORDERED: POTASSIUM CHLOR 20 MEQ PREMIX 100 ML IV PRN (15:45)
[2016-12-23] MEDS ORDERED: KETOROLAC TROMETHAMINE 30 MG/ML (IVP) VIAL IVP PRN (15:45)
--- NOTE | 2016-12-23 15:47 | HHI.PR ---
Immediate Post Op Note Procedure Date: Dec 23, 2016 Pre Op Diagnosis: Cancer transverse colon Post Op Diagnosis: same Surgeon: Kyle Mccoy Wharf Laborer(s): Marnie Procedure: Exploratory laparotomy + asc colectomy Findings: ulcerated cance rt transverse colon, liver/GB nl, SB normal Complications: none Specimen(s) removed: asc colon Estimated blood loss: 50cc Anesthesia: General Drains: None IVF Patient to: PACU Patient Condition: Good Kyle Mccoy MD Dec 23, 2016 15:47
[2016-12-23] MEDS ORDERED: MIDAZOLAM HCL 2 MG/2 ML VIAL ONE (15:50)
[2016-12-23] MEDS ORDERED: MORPHINE SULFATE 4 MG/ML INJ ONE (15:51)
[2016-12-23] MEDS ORDERED: *morphine SULFATE 8 MG/ML PERIprocedure ONLY ONE ×3 (16:07→16:26)
[2016-12-23] MEDS ORDERED: *HYDROmorphone PF 1 MG VIAL PERIprocedural Use ONLY ONE (16:41)
[2016-12-23] MEDS: D5-NS + KCL 20 MEQ INJ 1,000 ML IV SCH ×2 (17:00→21:21)
[2016-12-23] MEDS: PANTOPRAZOLE SODIUM 40 MG VIAL IVP SCH (17:00)
[2016-12-23] MEDS: MORPHINE SULFATE 30 MG/30 ML PCA IV SCH (17:48)
[2016-12-23] MEDS ORDERED: GLUCAGON 1 MG/ML VIAL OTHER PRN (18:30)
[2016-12-23] MEDS ORDERED: DEXTROSE 50% IN WATER 50 ML VIAL(D50) IV PUSH PRN (18:30)
[2016-12-23] MEDS: METOCLOPRAMIDE HCL 10 MG/2 ML VIAL IVS SCH (20:00)
[2016-12-23] MEDS: SODIUM CHLORIDE 0.9% FLUSH 5 ML FLUSH IVF SCH (20:00)
[2016-12-23] MEDS: LOW DOSE INSULIN NOVOLIN REGULAR SUPPLEMENTAL SCALE SQ SCH (20:10)
[2016-12-23] MEDS: INSULIN HUMAN NPH/R 70/30 1,000 UNITS/10 ML VIAL SQ SCH (21:05)
[2016-12-23] MEDS: ATORVASTATIN 40 MG TAB PO SCH (21:05)
[2016-12-23] MEDS: PREGABALIN 75 MG CAP PO SCH (21:05)
[2016-12-23] MEDS: metroNIDAZOLE 500 MG INJ 100 ML IV SCH (21:06)
[2016-12-23] MEDS: METOPROLOL TARTRATE 25 MG TAB PO SCH (21:06)
[2016-12-23] MEDS: PCA - TOTAL MG MORPHINE DELIVERED PER SHIFT SCH (21:07)
[2016-12-23 22:00] VITALS: PULSE 64
[2016-12-23 22:05] VITALS: O2SAT 97
[2016-12-23 23:00] VITALS: PULSE 64
[2016-12-24] VITALS (19 sets, daily range): BP systolic 97–156; BP diastolic 65–83; PULSE 64–83; RESP 16–20; TEMP 96.5–98.4; O2SAT 94–100
[2016-12-24] MEDS: D5-NS + KCL 20 MEQ INJ 1,000 ML IV SCH ×3 (03:04→13:14)
[2016-12-24] MEDS: metroNIDAZOLE 500 MG INJ 100 ML IV SCH ×2 (04:54→13:14)
[2016-12-24] MEDS: PCA - TOTAL MG MORPHINE DELIVERED PER SHIFT SCH ×3 (06:00→22:00)
[2016-12-24] MEDS: LOW DOSE INSULIN NOVOLIN REGULAR SUPPLEMENTAL SCALE SQ SCH ×4 (06:01→21:00)
[2016-12-24 06:15] LABS: AUTOMATED NEUTROPHIL # 10.6 TH/MM3 (1.8-7.7); BASOPHIL % 0.1 % (0.0-2.0); EOSINOPHIL % 0.1 % (0.0-4.0); HEMATOCRIT 37.6 % (39.0-51.0); LYMPH % 4.8 % (9.0-44.0); LYMPHOCYTE # 0.6 TH/MM3 (1.0-4.8); MEAN CELL VOLUME 78.6 FL (80.0-100.0); MEAN CORPUSCULAR HEMOGLOBIN 24.8 PG (27.0-34.0); MEAN CORPUSCULAR HGB CONC 31.5 % (32.0-36.0); MONO % 10.1 % (0.0-8.0); NEUT % 84.9 % (16.0-70.0); PLATELET COUNT 232 TH/MM3 (150-450); RED BLOOD COUNT 4.78 MIL/MM3 (4.50-5.90); RED CELL DISTRIBUTION WIDTH 30.6 % (11.6-17.2); WHITE BLOOD COUNT 12.5 TH/MM3 (4.0-11.0)
[2016-12-24 06:19] LABS: HEMO FLAGS AUTO DIFF
[2016-12-24 06:36] LABS: BICARBONATE 24.2 MEQ/L (21.0-32.0); POTASSIUM 6.1 MEQ/L (3.5-5.1)
[2016-12-24 07:19] LABS: CALCIUM-PROTEIN CORRECTED 7.5 MG/DL (8.5-10.1)
[2016-12-24 07:56] LABS: ACANTHOCYTES OCC (NORMAL); OVALOCYTES 1+ (NORMAL); SCAN/DIFF AUTO DIFF CONFIRMED
[2016-12-24] MEDS: PANTOPRAZOLE SODIUM 40 MG VIAL IVP SCH (08:34)
[2016-12-24] MEDS: SODIUM CHLORIDE 0.9% FLUSH 5 ML FLUSH IVF SCH ×2 (08:34→21:00)
[2016-12-24] MEDS: PANTOPRAZOLE SOD 40 MG DELAYED RELEASE TAB PO SCH (08:34)
[2016-12-24] MEDS: PREGABALIN 75 MG CAP PO SCH ×2 (08:35→20:54)
[2016-12-24] MEDS: INSULIN HUMAN NPH/R 70/30 1,000 UNITS/10 ML VIAL SQ SCH ×2 (08:35→21:00)
[2016-12-24] MEDS: ALVIMOPAN 12 MG CAPSULE - Post-op dosing PO SCH ×2 (08:36→20:54)
[2016-12-24] MEDS: METOPROLOL TARTRATE 25 MG TAB PO SCH ×2 (08:36→20:54)
[2016-12-24] MEDS: METOCLOPRAMIDE HCL 10 MG/2 ML VIAL IVS SCH ×2 (08:37→20:55)
--- NOTE | 2016-12-24 10:27 | HHI.PR ---
Subjective Remarks C/R Surg POD #1 afebrile, VSS UO good Objective - Vital Signs Date Time Temp Pulse Resp B/P Pulse Ox O2 Delivery O2 Flow Rate FiO2 12/24/16 10:00 64 12/24/16 07:55 97.5 16 123/73 100 12/24/16 07:54 21 12/23/16 22:05 Nasal Cannula 2.00 Result Diagram: 12/24/16 0554 12/24/16 0554 Objective Remarks PE alert Abd - soft, wound dry, min tympany A/P Assessment and Plan Imp: decr IVF control BS OOB tx to floor Kyle Mccoy MD Dec 24, 2016 10:27
[2016-12-24] MEDS: ATORVASTATIN 40 MG TAB PO SCH (20:54)
[2016-12-24] MEDS ORDERED: ALVIMOPAN 12 MG CAPSULE PO SCH (21:00)
[2016-12-24] MEDS: MORPHINE SULFATE 30 MG/30 ML PCA IV SCH (23:38)
[2016-12-25 04:00] VITALS: BP 159/65; PULSE 64; RESP 20; TEMP 98.4; O2SAT 95
[2016-12-25] MEDS: D5-NS + KCL 20 MEQ INJ 1,000 ML IV SCH ×2 (05:36→15:34)
[2016-12-25] MEDS: LOW DOSE INSULIN NOVOLIN REGULAR SUPPLEMENTAL SCALE SQ SCH ×4 (05:36→21:00)
[2016-12-25 05:37] LABS: AUTOMATED NEUTROPHIL # 10.4 TH/MM3 (1.8-7.7); BASOPHIL % 0.2 % (0.0-2.0); EOSINOPHIL # 0.1 TH/MM3 (0-0.4); EOSINOPHIL % 0.5 % (0.0-4.0); HEMATOCRIT 35.6 % (39.0-51.0); LYMPH % 6.5 % (9.0-44.0); LYMPHOCYTE # 0.8 TH/MM3 (1.0-4.8); MEAN CELL VOLUME 77.7 FL (80.0-100.0); MEAN CORPUSCULAR HEMOGLOBIN 25.5 PG (27.0-34.0); MEAN CORPUSCULAR HGB CONC 32.8 % (32.0-36.0); MONO % 9.6 % (0.0-8.0); NEUT % 83.2 % (16.0-70.0); PLATELET COUNT 181 TH/MM3 (150-450); RED BLOOD COUNT 4.58 MIL/MM3 (4.50-5.90); RED CELL DISTRIBUTION WIDTH 30.7 % (11.6-17.2); WHITE BLOOD COUNT 12.6 TH/MM3 (4.0-11.0)
[2016-12-25] MEDS: PCA - TOTAL MG MORPHINE DELIVERED PER SHIFT SCH ×3 (05:37→22:00)
[2016-12-25 05:59] LABS: BICARBONATE 21.4 MEQ/L (21.0-32.0); POTASSIUM 5.3 MEQ/L (3.5-5.1)
[2016-12-25 06:10] LABS: HEMO FLAGS AUTO DIFF
[2016-12-25 06:47] LABS: OVALOCYTES 1+ (NORMAL)
[2016-12-25 06:48] LABS: SCAN/DIFF AUTO DIFF CONFIRMED
--- NOTE | 2016-12-25 07:11 | HHI.PR ---
Subjective Remarks C/R Surg POD #2 afebrile, VSS UO good +flatus Objective - Vital Signs Date Time Temp Pulse Resp B/P Pulse Ox O2 Delivery O2 Flow Rate FiO2 12/25/16 05:37 18 12/25/16 04:00 98.4 64 159/65 95 12/24/16 07:54 21 12/23/16 22:05 Nasal Cannula 2.00 Result Diagram: 12/25/16 0445 12/25/16 0445 Objective Remarks PE alert Abd - soft, wound dry, min tympany on-Q OK A/P Assessment and Plan Imp: decr IVF control BS OOB start PO Kyle Mccoy MD Dec 25, 2016 07:11
[2016-12-25 08:00] VITALS: BP 169/69; PULSE 66; RESP 18; TEMP 97.9; O2SAT 93
[2016-12-25] MEDS: SODIUM CHLORIDE 0.9% FLUSH 5 ML FLUSH IVF SCH ×2 (09:00→21:00)
[2016-12-25] MEDS: PANTOPRAZOLE SODIUM 40 MG VIAL IVP SCH (09:00)
[2016-12-25] MEDS: METOPROLOL TARTRATE 25 MG TAB PO SCH ×2 (09:01→21:33)
[2016-12-25] MEDS: PANTOPRAZOLE SOD 40 MG DELAYED RELEASE TAB PO SCH (09:01)
[2016-12-25] MEDS: PREGABALIN 75 MG CAP PO SCH ×2 (09:01→21:33)
[2016-12-25] MEDS: ALVIMOPAN 12 MG CAPSULE - Post-op dosing PO SCH ×2 (09:02→21:35)
[2016-12-25] MEDS: METOCLOPRAMIDE HCL 10 MG/2 ML VIAL IVS SCH ×2 (09:02→21:36)
[2016-12-25] MEDS: INSULIN HUMAN NPH/R 70/30 1,000 UNITS/10 ML VIAL SQ SCH ×2 (09:03→21:35)
[2016-12-25] MEDS ORDERED: INFLUENZA VIRUS VACCINE (QUADRIVALENT) 0.5 ML SYR IM ONE (10:00)
[2016-12-25] MEDS ORDERED: PNEUMOCOCCAL POLYVALENT INJ 25 MCG/0.5 ML SYR IM ONE (10:00)
[2016-12-25 12:00] VITALS: BP 177/81; PULSE 65; RESP 18; TEMP 97; O2SAT 96
[2016-12-25 16:00] VITALS: BP 144/67; PULSE 65; RESP 18; TEMP 96.3; O2SAT 98
[2016-12-25 20:16] VITALS: BP 173/70; PULSE 65; RESP 17; TEMP 97.4; O2SAT 97
[2016-12-25] MEDS: ATORVASTATIN 40 MG TAB PO SCH (21:33)
[2016-12-26 00:28] VITALS: BP 146/74; PULSE 68; RESP 17; TEMP 98; O2SAT 98
[2016-12-26 04:47] VITALS: BP 153/70; PULSE 74; RESP 17; TEMP 97; O2SAT 96
[2016-12-26] MEDS: D5-NS + KCL 20 MEQ INJ 1,000 ML IV SCH ×2 (04:54→17:42)
[2016-12-26] MEDS: PCA - TOTAL MG MORPHINE DELIVERED PER SHIFT SCH ×2 (06:00→14:00)
[2016-12-26] MEDS: LOW DOSE INSULIN NOVOLIN REGULAR SUPPLEMENTAL SCALE SQ SCH ×3 (06:40→16:00)
[2016-12-26 08:00] VITALS: BP 163/76; PULSE 65; RESP 17; TEMP 96.7; O2SAT 97
[2016-12-26] MEDS: PANTOPRAZOLE SOD 40 MG DELAYED RELEASE TAB PO SCH (08:19)
[2016-12-26] MEDS: ALVIMOPAN 12 MG CAPSULE - Post-op dosing PO SCH (08:19)
[2016-12-26] MEDS: PANTOPRAZOLE SODIUM 40 MG VIAL IVP SCH (08:19)
[2016-12-26] MEDS: PREGABALIN 75 MG CAP PO SCH (08:19)
[2016-12-26] MEDS: METOPROLOL TARTRATE 25 MG TAB PO SCH (08:19)
[2016-12-26] MEDS: SODIUM CHLORIDE 0.9% FLUSH 5 ML FLUSH IVF SCH (08:19)
[2016-12-26] MEDS: METOCLOPRAMIDE HCL 10 MG/2 ML VIAL IVS SCH (08:20)
[2016-12-26] MEDS: INSULIN HUMAN NPH/R 70/30 1,000 UNITS/10 ML VIAL SQ SCH (08:20)
[2016-12-26 12:00] VITALS: BP 149/67; PULSE 66; RESP 17; TEMP 97.1; O2SAT 96
[2016-12-26 16:00] VITALS: BP 171/74; PULSE 65; RESP 17; TEMP 97; O2SAT 99
[2016-12-26] MEDS ORDERED: HYDR-3516 PO (18:31)
[2016-12-26 18:32] VITALS: O2SAT 99
--- NOTE | 2016-12-27 21:06 | MP ---
cc: LUIS A CHAUDHARI MD DATE OF SURGERY December 23, 2016 PREOPERATIVE DIAGNOSIS Carcinoma of the hepatic flexure. PROCEDURE Exploratory laparotomy with ascending colectomy. POSTOPERATIVE DIAGNOSIS Carcinoma of the hepatic flexure. SURGEON Dr. Heath Chaudhari ASSESSMENT Dr. Jamila Dye PROCEDURE IN DETAIL The patient was placed in the supine position. After adequate general anesthesia, his abdomen was prepped with Betadine solution and draped in the usual sterile fashion. With Dr. Dye's assistance, the abdomen was opened through an infraumbilical transverse incision dividing the rectus muscles with electrocautery. Exploration revealed a palpable tumor in the right side of the transverse colon near the hepatic flexure. It did not appear to be adherent to any surrounding structures and there was no obvious serosal puckering. The distal colon was palpated carefully and was felt to be pretty unremarkable. Small bowel was run from ligament of Treitz down to the ileocecal valve and felt to be normal. Stomach and duodenum were normal. Liver and gallbladder were unremarkable. Great vessels were of normal caliber and fairly soft to palpation. First, the right colon was mobilized medially by dividing along the white line of Toldt. The right ureter was identified and carefully preserved. Dissection then proceeded up the right gutter freeing attachments to the hepatic flexure entering the lesser sac and mobilizing the gastrocolic omentum off the transverse colon. The bowel was then divided in the right transverse colon using the REYES stapling device and in the terminal ileum between Christi clamps. The intervening mesentery taken between Rosanne's obtaining hemostasis of the major vascular pedicles with Vicryl ties. Bowel continuity was then restored by firing the REYES stapler across the antimesenteric ends of the bowel closing the enterotomy with a TA 60 stapler. The mesenteric defect closed with a running Vicryl suture and a 3-0 Vicryl crotch suture was placed as well. The abdomen was then irrigated copiously with normal saline. Adequate hemostasis achieved. Transverse incision was then closed anatomically in two layers using #1 PDS sutures to reapproximate the respective fascial layers. On-Q catheters were placed into the rectus sheath on both sides and brought out through subcu tunnels above the transverse incision. The subcu tissue was irrigated copiously and the skin closed with a subcuticular Vicryl suture. Wound area washed with normal saline and dried, sterile dressing of Telfa and gauze applied. The patient tolerated the procedure quite well and was brought to recovery room in stable condition. MD PRABHAKAR Chance/ /9:38 PM /8:57 PM
--- NOTE | 2017-02-25 07:29 | MD ---
cc: LUIS A CHAUDHARI M.D., KATHLEEN B. M.D. REES, RYAN R. M.D. ADMISSION DATE: 12/23/2016 DISCHARGE DATE: 12/26/2016 ADMITTING DIAGNOSIS Carcinoma of the hepatic flexure. PROCEDURE December 23, 2016, exploratory laparotomy with ascending colectomy. DISCHARGE DIAGNOSES Carcinoma of the hepatic flexure T2, N0, M0 HISTORY OF PRESENT ILLNESS Mr. Dominguez is a 70-year-old male who has been in relatively good health, feeling tired recently and undergoing a cardiac workup. He was found to be anemic and ended up in the hospital for a transfusion. His hemoglobin was low. Colonoscopy revealed a carcinoma of the right-side of the transverse colon. He has felt better since transfusion. Normally moves his bowels regularly once a day without laxatives or enemas and no abdominal distension, nausea, vomiting, diarrhea or melena. Appetite has been good. Weight has been stable. MEDICAL AND SURGICAL HISTORY Well documented in the initial history and physical. PERTINENT PHYSICAL This is a very pleasant well-developed male with one leg amputation. ABDOMEN: Soft and quite benign. No distension. No rebound or guarding. No masses noted. ANAL INSPECTION: Revealed benign canal. Digital exam revealed good tone. No masses or tenderness and no blood on the finger. HOSPITAL COURSE After admission, the patient was taken to the operating room at which point he underwent exploratory laparotomy and ascending colectomy. He was found to have a palpable tumor in the right-sided of the transverse colon near the hepatic flexure. It was not adherent to any surrounding structures. The liver and gallbladder were unremarkable. The patient tolerated the surgery quite well. Initially he was stabilized in the intensive care unit. His bowel function returned slowly and his diet was advanced accordingly. He was able to ambulate with some physical therapy and assistance due to his amputation. Respiratory therapy was needed for postoperative atelectasis. He continued to improve with better bowel function and stronger oral intake weaning his IV fluids. He was eating well enough to be considered ready for discharge home on the December. Final pathology report revealed a well-differentiated adenocarcinoma of the hepatic flexure with a tumor invading the muscularis propria. 12 lymph nodes were negative for metastatic disease. Final staging was T2, N0, M0. DISCHARGE INSTRUCTIONS The patient was discharged eating a regular diet. He was encouraged to ambulate daily avoiding any heavy lifting or straining. All preop medications were to be resumed. The patient will be seen in the office in one weeks' time for routine follow-up. Any problems prior to the office visit, he was instructed to call for more urgent attention. MD PRABHAKAR Chance/RICO /7:44 PM /7:21 AM
== END 2016-12-26 20:44 | disposition home or self-care (01) | DRG 331 ==
LOC: HSDI 12-23 11:41 → HCIN 12-23 20:25 → N07B 12-24 14:11
PROVIDERS: ADMIT Colon & Rectal Surgery; ATTEND Colon & Rectal Surgery
PROC: 0DTK0ZZ Resection of Ascending Colon, Open Approach (ICD-10-PCS; principal; 2016-12-23 13:53)
DX: C18.3 Malignant neoplasm of hepatic flexure (principal)
CPT/HCPCS: 80048; 82948; 84155; 85025; 86850; 86900; 86901; 88307; 88309; 94150; C9113; J0690; J1170; J1610; J1815; J1885; J2250; J2270; J2405; J2710; J2765; J3010; J3480; J7120

== ENCOUNTER → 2016-12-16 | Outpatient (CLI) | payer MEDICARE ==
[~2016-12-16] MED LIST changes: +ATOR40TA16 PO; -DABI150 PO; +FE FCAP PO; -FLUTPOW; +HYDR-3516 PO; -LISI-360 PO; -LOVA20TA PO; +LYRI150C PO; +METO-426 PO; -METO50CR PO; +N7030SS SQ; -NEUR300C PO; -NOVO7030P2 SQ; -PERC5TAB12 PO; +PLAV75TA29 PO; +PRAD150C PO; -SULF1TAB47 PO; -TAB-TAB PO; -TAMS0.4C67 PO; +VITA10004 PO; +VITA10007 PO; -VITA500T10 PO
[2016-12-16 08:08] LABS: AUTOMATED NEUTROPHIL # 4.3 TH/MM3 (1.8-7.7); BASOPHIL % 0.6 % (0.0-2.0); EOSINOPHIL # 0.2 TH/MM3 (0-0.4); EOSINOPHIL % 3.1 % (0.0-4.0); HEMATOCRIT 44.3 % (39.0-51.0); LYMPH % 13.4 % (9.0-44.0); LYMPHOCYTE # 0.8 TH/MM3 (1.0-4.8); MEAN CELL VOLUME 76.3 FL (80.0-100.0); MEAN CORPUSCULAR HGB CONC 32.7 % (32.0-36.0); MONO % 10.4 % (0.0-8.0); NEUT % 72.5 % (16.0-70.0); PLATELET COUNT 183 TH/MM3 (150-450); RED BLOOD COUNT 5.81 MIL/MM3 (4.50-5.90); WHITE BLOOD COUNT 5.9 TH/MM3 (4.0-11.0)
[2016-12-16 08:12] LABS: BLOOD, URINE NEG (NEG); GLUCOSE,URINE NEG (NEG); HYALINE CAST, URINE 2 /lpf (RARE); KETONE, URINE NEG (NEG); NITRITE,URINE NEG (NEG); PH, URINE 5.5 (5.0-8.5); TRANSITIONAL EPI CELLS, URINE <1 /hpf; URINE COLOR YELLOW (YELLW/STRAW)
[2016-12-16 08:19] LABS: HEMO FLAGS AUTO DIFF
[2016-12-16 08:26] LABS: APTT (PATIENT) 41.6 SEC (24.3-30.1); INTERNATIONAL NORMALIZED RATIO 1.3 RATIO; PROTHROMBIN TIME - PATIENT 15.1 SEC (9.8-11.6)
[2016-12-16 08:31] LABS: COMMENT (UR) CULT NOT INDICATED; CULTURE IF INDICATED CULT NOT INDICATED
[2016-12-16 08:34] LABS: ANION GAP 8 MEQ/L (5-15); AST (GOT) 16 U/L (15-37); BICARBONATE 30.4 MEQ/L (21.0-32.0); BLOOD UREA NITROGEN 21 MG/DL (7-18); CHLORIDE 101 MEQ/L (98-107); GLOMERULAR FILTRATION RATE 60 ML/MIN (>89); GLUCOSE,FASTING 201 MG/DL (74-99); POTASSIUM 4.8 MEQ/L (3.5-5.1); SODIUM (NA) 139 MEQ/L (136-145)
[2016-12-16 08:37] LABS: ALKALINE PHOSPHATASE 95 U/L (45-117); ALT (GPT) 23 U/L (12-78); TOTAL BILIRUBIN ADULT 0.9 MG/DL (0.2-1.0)
--- NOTE | 2016-12-16 08:51 | RADRPT ---
EXAM DATE/TIME: 12/16/2016 08:31 [facility] COMPARISON: CHEST PA & LAT, May 09, 2013, 13:28. INDICATIONS : Evaluate for pneumonia, pneumothorax or communicable disease. Preop chest for laporotomy on 12/23/16 MEDICAL HISTORY : Diabetes mellitus type II. A-fib SURGICAL HISTORY : Pacemaker. ENCOUNTER: Initial ACUITY: 1 day PAIN SCORE: 0/10 LOCATION: Bilateral chest FINDINGS: PA and lateral views of the chest demonstrate the lungs to be symmetrically aerated without evidence of mass, infiltrate or effusion. Left-sided pacemaker with a single intact lead. The cardiomediastina l contours are unremarkable. Osseous structures are intact. CONCLUSION: No acute disease. Keenan Watts MD on December 16, 2016 at 8:49 Board Certified Radiologist. This report was verified electronically.
[2016-12-16 09:03] LABS: ACANTHOCYTES OCC (NORMAL); KERATOCYTES OCC (NORMAL); OVALOCYTES 2+ (NORMAL); SCAN/DIFF AUTO DIFF CONFIRMED
== END ==
LOC: CPRE 07:37
PROVIDERS: ATTEND Colon & Rectal Surgery
DX: Z01.812 Encounter for preprocedural laboratory examination (principal); C18.2 Malignant neoplasm of ascending colon; C79.01 Secondary malignant neoplasm of right kidney and renal pelvis; Z79.01 Long term (current) use of anticoagulants
CPT/HCPCS: 36415; 71020; 80053; 81001; 82378; 85025; 85610; 85730

== ENCOUNTER 2018-07-21 12:28 | Inpatient (IN) ==
[2018-07-21] MEDS ORDERED: Vancomycin Inj 1,000 MG in Sodium Chlor 0.9% Inj 250 ML IV.SIG ONE ×2 (12:54→16:00)
[2018-07-21] MEDS ORDERED: Piperacil/Tazo 3.375 GM Premix 50 ML IV.SIG ONE (12:54)
[2018-07-21] MEDS ORDERED: Morphine Inj 4 MG/ML Vial IV.PUSH ONE (12:56)
--- NOTE | 2018-07-21 13:02 | ED ---
HPI General Chief complaint: Extremity Injury, Lower Stated complaint: Rt foot 2nd toe infection x 4 days Time Seen by Provider: 07/21/18 12:51 Source: patient and RN notes reviewed Mode of arrival: ambulatory Limitations: no limitations History of Present Illness HPI narrative: 72-year-old male presents to the emergency department for evaluation of infection to his right second toe and right foot that started 4 days ago. Patient has history of diabetes. He has a history of a left BKA and a right great toe mutation. Patient also reports history of atrial fibrillation and is on Pradaxa and Plavix. Patient states his current pain is 8 /10. He states that previous amputations were due to diabetic foot infections as well. He states he went to urgent care who referred him to the emergency department for IV antibiotics. He states he was a previously established with Dr. Schultz, outdoor landscape architect, but is not currently established with a outdoor landscape architect. Moderate severity. Onset (ago): day(s) (4) Location: right and lower extremity Radiation: non-radiation Severity: moderate Severity scale (1-10): 8 Quality: aching Pain Consistency: constant Relieving factors: none Exacerbating factors: none Related Data Home Medications Medication Instructions Recorded Confirmed ascorbic acid (vitamin C) [Vitamin 1,000 mg PO DAILY 07/21/18 07/21/18 C] atorvastatin 40 mg PO DAILY 07/21/18 07/21/18 clopidogrel [Plavix] 75 mg PO DAILY 07/21/18 07/21/18 cyanocobalamin (vitamin B-12) 3,000 mcg PO DAILY 07/21/18 07/21/18 [Vitamin B-12] dabigatran etexilate [Pradaxa] 150 mg PO BID 07/21/18 07/21/18 hydrochlorothiazide 25 mg PO DAILY 07/21/18 07/21/18 insulin NPH and regular human 30 unit SUBCUT BID 07/21/18 07/21/18 [Novolin 70/30 U-100 Insulin] metoprolol tartrate 100 mg PO BID 07/21/18 07/21/18 pregabalin [Lyrica] 150 mg PO BID 07/21/18 07/21/18 Allergies Allergy/AdvReac Type Severity Reaction Status Date / Time No Known Allergies Allergy none Uncoded 07/21/18 12:38 Review of Systems ROS: all other systems reviewed are negative [facility] Medical History Medical History Atrial fibrillation (Acute) Hypertension (Acute) Pacemaker (Acute) Urinary retention (Acute) Surgical History Surgical History History of colon surgery (Acute) Hx of BKA (Acute) Hx of tonsillectomy (Acute) Social History Social History Substance History: No History of Abuse Second Hand Smoke Exposure: No Smoking Status: Never smoker How Often Do You Have a Drink Containing Alcohol: Monthly or less Recent Travel in [facility] within the Last 8 Weeks: No Recent Out of Country Travel within the Last 8 Weeks: No Exam Narrative Exam Narrative: GENERAL: Well-nourished, well-developed male patient, afebrile. SKIN: Focused skin assessment warm/dry. Right toe is erythematous, swollen with redness that extends to the mid dorsal foot. No drainage. HEAD: Normocephalic. Atraumatic. EYES: No scleral icterus. No injection or drainage. NECK: Supple, trachea midline. No JVD or lymphadenopathy. CARDIOVASCULAR: Regular rate and rhythm without murmurs, gallops, or rubs. Right pedal pulse is 1+. RESPIRATORY: Breath sounds equal bilaterally. No accessory muscle use. MUSCULOSKELETAL: No cyanosis, or edema. BACK: No obvious deformity Course Initial Documented Vital Signs Temperature 97.7 F 07/21/18 12:34 Pulse Rate 65 07/21/18 12:34 Respiratory Rate 16 07/21/18 12:34 Blood Pressure 138/70 07/21/18 12:34 Pulse Oximetry 97 07/21/18 12:34 Last Documented Vital Signs Temperature 97.7 F 07/21/18 12:34 Pulse Rate 65 07/21/18 14:19 Respiratory Rate 18 07/21/18 14:19 Blood Pressure 137/59 L 07/21/18 14:19 Pulse Oximetry 96 07/21/18 14:19 Medical Decision Making [facility] Narrative Medical decision making narrative: 72-year-old male presents to the emergency department for evaluation of right diabetic foot infection. He does have history of right great toe and left BKA amputation. IV access is obtained. CBC , CMP, lactic acid, PTT, PT/INR, ESR, CRP are ordered and pending. X-ray of the left foot is ordered and pending. Patient started on vancomycin 1 g IV, Zosyn 3.375 g IV. Patient is given morphine 4 mg IV, Zofran 4 mg IV for pain. CBC shows no acute abnormality. ESR is 28. CMP shows no acute abnormality. CRP is 3.28. Lactic acid is 1.5. PTT is 43.2. PT/INR is 13.2/1.3. X-ray of the left foot shows osteomyelitis is suspected in head of the first metatarsal and probably second metatarsal. Hospitalist is paged for admission. Dr. Khalil accepted admission. Medical Screen Exam Complete: Yes Emergency Medical Condition: Yes Differential Diagnosis Differential Diagnosis: Diabetic foot infection versus osteomyelitis versus abscess versus sepsis Medical Records Medical records reviewed: Yes I reviewed the patient's medical records. Lab Data Result diagrams: 07/21/18 13:15 07/21/18 13:15 Lab Results 07/21/18 07/21/18 07/21/18 Range/Units 13:00 13:15 13:15 CBC w Diff Auto diff final WBC 8.2 (4.0-11.0) th/mm3 RBC 4.92 (4.50-5.90) mil/mm3 Hgb 14.6 (13.0-17.0) gm/dL Hct 43.3 (39.0-51.0) % MCV 88.0 (80.0-100.0) fL MCH 29.6 (27.0-34.0) pg MCHC 33.7 (32.0-36.0) % RDW 12.7 (11.6-17.2) % Plt Count 216 (150-450) th/mm3 MPV 8.2 (7.0-11.0) fL Neut % (Auto) 76.5 H (16.0-70.0) % Lymph % (Auto) 11.7 (9.0-44.0) % Buchanan % (Auto) 7.7 (0.0-8.0) % Eos % (Auto) 1.8 (0.0-4.0) % Baso % (Auto) 2.3 H (0.0-2.0) % Neut # (Auto) 6.3 (1.8-7.7) th/mm3 Lymph # (Auto) 1.0 (1.0-4.8) th/mm3 Buchanan # (Auto) 0.6 (0.0-0.9) th/mm3 Eos # (Auto) 0.1 (0.0-0.4) th/mm3 Baso # (Auto) 0.2 (0.0-0.2) th/mm3 WBC Differential . Differential Comment . ESR (0-20) mm/hr PT 13.2 H (9.8-11.6) sec INR 1.3 Ratio APTT 43.2 H (24.3-30.1) sec Sodium (136-145) meq/L Potassium (3.5-5.1) meq/L Chloride (98-107) meq/L Carbon Dioxide (21.0-32.0) meq/L Anion Gap (5-15) meq/L BUN (7-18) mg/dL Creatinine (0.60-1.30) mg/dL Estimated GFR (>89) mL/min POC Glucose 283 H (68-110) mg/dl Random Glucose (74-106) mg/dL Lactic Acid (0.4-2.0) mmol/L Calcium (8.5-10.1) mg/dL Total Bilirubin (0.2-1.0) mg/dL AST (15-37) U/L ALT (12-78) U/L Alkaline Phosphatase (45-117) U/L C-Reactive Protein (0.00-0.30) mg/dL Total Protein (6.4-8.2) g/dL Albumin (3.4-5.0) g/dL 07/21/18 07/21/18 07/21/18 Range/Units 13:15 13:15 13:15 CBC w Diff WBC (4.0-11.0) th/mm3 RBC (4.50-5.90) mil/mm3 Hgb (13.0-17.0) gm/dL Hct (39.0-51.0) % MCV (80.0-100.0) fL MCH (27.0-34.0) pg MCHC (32.0-36.0) % RDW (11.6-17.2) % Plt Count (150-450) th/mm3 MPV (7.0-11.0) fL Neut % (Auto) (16.0-70.0) % Lymph % (Auto) (9.0-44.0) % Buchanan % (Auto) (0.0-8.0) % Eos % (Auto) (0.0-4.0) % Baso % (Auto) (0.0-2.0) % Neut # (Auto) (1.8-7.7) th/mm3 Lymph # (Auto) (1.0-4.8) th/mm3 Buchanan # (Auto) (0.0-0.9) th/mm3 Eos # (Auto) (0.0-0.4) th/mm3 Baso # (Auto) (0.0-0.2) th/mm3 WBC Differential Differential Comment ESR 28 H (0-20) mm/hr PT (9.8-11.6) sec INR Ratio APTT (24.3-30.1) sec Sodium 134 L (136-145) meq/L Potassium 4.2 (3.5-5.1) meq/L Chloride 99 (98-107) meq/L Carbon Dioxide 27.1 (21.0-32.0) meq/L Anion Gap 8 (5-15) meq/L BUN 24 H (7-18) mg/dL Creatinine 1.20 (0.60-1.30) mg/dL Estimated GFR 60 L (>89) mL/min POC Glucose (68-110) mg/dl Random Glucose 282 H (74-106) mg/dL Lactic Acid 1.5 (0.4-2.0) mmol/L Calcium 9.0 (8.5-10.1) mg/dL Total Bilirubin 1.1 H (0.2-1.0) mg/dL AST 18 (15-37) U/L ALT 25 (12-78) U/L Alkaline Phosphatase 109 (45-117) U/L C-Reactive Protein 3.28 H (0.00-0.30) mg/dL Total Protein 7.5 (6.4-8.2) g/dL Albumin 3.7 (3.4-5.0) g/dL Imaging Data Radiologist's impression: Foot X-Ray 07/21/18 12:54 CONCLUSION: Osteomyelitis is suspected in head of the first metatarsal and probably second metatarsal. Discharge Plan Discharge Disposition Patient Disposition: 30 Still Patient Discharge Details Diagnosis: Acute osteomyelitis of toe of right foot Physicians Team ED Provider: Raiza Oglesby ED Midlevel Provider: Candace Garcia Primary Care Provider: Brian Harris Rxs /Orders / Referrals /Forms Prescriptions: No Action ascorbic acid (vitamin C) [Vitamin C] 1,000 mg Tablet 1,000 mg PO DAILY RF: 0 metoprolol tartrate 100 mg Tablet 100 mg PO BID RF: 0 insulin NPH and regular human [Novolin 70/30 U-100 Insulin] 100 unit/mL (70-30 ) Suspension 30 unit SUBCUT BID RF: 0 cyanocobalamin (vitamin B-12) [Vitamin B-12] 1,000 mcg Tablet 3,000 mcg PO DAILY RF: 0 clopidogrel [Plavix] 75 mg Tablet 75 mg PO DAILY RF: 0 hydrochlorothiazide 25 mg Tablet 25 mg PO DAILY RF: 0 pregabalin [Lyrica] 150 mg Capsule 150 mg PO BID RF: 0 dabigatran etexilate [Pradaxa] 150 mg Capsule 150 mg PO BID RF: 0 atorvastatin 40 mg PO DAILY RF: 0 Status ED Status: Admitted Patient
[2018-07-21 13:33] LABS: Baso # (Auto) 0.2 th/mm3 (0.0-0.2); Baso % (Auto) 2.3 % (0.0-2.0); Eos # (Auto) 0.1 th/mm3 (0.0-0.4); Eos % (Auto) 1.8 % (0.0-4.0); Hematocrit 43.3 % (39.0-51.0); Hemoglobin 14.6 gm/dL (13.0-17.0); Lymph % (Auto) 11.7 % (9.0-44.0); Mean Corpuscular HGB Conc 33.7 % (32.0-36.0); Mean Corpuscular Hemoglobin 29.6 pg (27.0-34.0); Mean Platelet Volume 8.2 fL (7.0-11.0); Mono # (Auto) 0.6 th/mm3 (0.0-0.9); Mono % (Auto) 7.7 % (0.0-8.0); Neut # (Auto) 6.3 th/mm3 (1.8-7.7); Neut % (Auto) 76.5 % (16.0-70.0); Platelet Count 216 th/mm3 (150-450); Red Blood Count 4.92 mil/mm3 (4.50-5.90); Red Cell Distribution Width 12.7 % (11.6-17.2); White Blood Count 8.2 th/mm3 (4.0-11.0)
--- NOTE | 2018-07-21 13:33 | XR ---
EXAM DATE: 07/21/2018 12:54 PM EDT AGE/SEX: 72 years / Male INDICATIONS: Right foot 2nd toe infection x 4 days. CLINICAL DATA: This is the patient's initial encounter. Patient reports that signs and symptoms have been present for 4 - 6 days and indicates a pain score of 8/10. MEDICAL/SURGICAL HISTORY: Diabetes. Hypertension. A-fib. Urinary retention. Pacemaker. Tonsi llectomy. Colon surgery. 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 COMPARISON: [facility], FOOT RIGHT COMPLETE ([id number]), 06/23/2013. . FINDINGS: Extensive digital artery calcifications with previous amputation of the great toe. There is soft tiss ue swelling about the second toe with the suggestion of lucency about the head of the second metatars al when compared to old films.. There is also minimal erosion head of the first metatarsal. Osteomyel itis suspected. CONCLUSION: Osteomyelitis is suspected in head of the first metatarsal and probably second metatarsal. Electronically signed by: Randall Duval MD 07/21/2018 1:32 PM EDT
[2018-07-21 13:51] LABS: Chloride 99 meq/L (98-107); Potassium 4.2 meq/L (3.5-5.1); Sodium 134 meq/L (136-145)
[2018-07-21 13:55] LABS: Albumin 3.7 g/dL (3.4-5.0); Anion Gap 8 meq/L (5-15); Blood Urea Nitrogen 24 mg/dL (7-18); Carbon Dioxide 27.1 meq/L (21.0-32.0); Glucose,Random 282 mg/dL (74-106)
[2018-07-21 13:58] LABS: Alanine Aminotransferase 25 U/L (12-78); Aspartate Aminotransferase 18 U/L (15-37); Glomerular Filtration Rate 60 mL/min (>89)
[2018-07-21 14:00] LABS: Total Protein 7.5 g/dL (6.4-8.2)
[2018-07-21 14:01] LABS: Alkaline Phosphatase 109 U/L (45-117)
[2018-07-21 14:05] LABS: C-Reactive Protein 3.28 mg/dL (0.00-0.30)
[2018-07-21 14:28] LABS: Activated Partial Thrombo Time 43.2 sec (24.3-30.1); INR 1.3 Ratio; Prothrombin Time 13.2 sec (9.8-11.6)
[2018-07-21] MEDS ORDERED: Vancomycin Consult Pharmacy OTHER PRN (15:05)
[2018-07-21] MEDS ORDERED: Dextrose 50% in Water 50 ML Vial IV.PUSH PRN (15:06)
[2018-07-21] MEDS ORDERED: Acetaminophen 325 MG Tablet PO PRN (15:06)
--- NOTE | 2018-07-21 15:08 | P.HPIM ---
History of Present Illness Primary Care Physician: Brian Harris MD Chief Complaint: right foot infection History of Present Illness: patient is a 72 y/o male with history of diabetes,a-fib,colon cancer- s/p left BKA, who presented to ER with redness and swelling of the right second toe. he says that it started three-four days ago. pain is mild to moderate in intensity. he denies any fever or chills. he says that his blood sugar at home is ' on high side'. Inpatient Certification: I certify that the inpatient services were ordered in accordance with Medicare regulations governing the order. This includes certification that hospital inpatient services are reasonable and necessary and in the case of services not specified as inpatient-only under 42 CFR 419.22(n), that they are appropriately provided as inpatient services in accordance to with the 2-midnight benchmark under 43 CFR 412.3(e) Review of Systems All other systems reviewed negative except as stated in HPI PMFSH - History History Provided By: Patient - Medical History Medical History: Medical History (Last Reviewed 07/21/18 @ 15:10 by Darwin Khalil MD) Atrial fibrillation Hypertension Pacemaker Urinary retention - Surgical History Surgical History: Surgical History (Last Reviewed 07/21/18 @ 15:10 by Darwin Khalil MD) History of colon surgery Hx of BKA Hx of tonsillectomy - Family History Family History: Family History (Last Updated 07/21/18 @ 15:10 by Darwin Khalil MD) Other Family history of diabetes mellitus - Tobacco History Second Hand Smoke Exposure: No Smoking Status: Never smoker - Alcohol History How Often Do You Have a Drink Containing Alcohol: Monthly or less - Substance Use History Substance History: No History of Abuse - Travel History Recent Travel in the [place] Within the Last 8 Weeks: No Recent Travel Out of the Country Within the Last 8 Weeks: No - Immunization History Tetanus Immunization: Unsure Medications and Allergies Active Medications: Active Medications Acetaminophen (Tylenol) 650 mg PO Q4H PRN PRN Reason: fever/pain Dextrose (D50w Vial) 50 ml IV.PUSH UNSCH PRN PRN Reason: PER HYPOGLYCEMIA PROTOCOL Glucagon (Glucagon Inj) 1 mg OTHER PRN PRN PRN Reason: for Hypoglycemia Protocol Hydrochlorothiazide (Hydrodiuril) 25 mg PO DAILY SIDDHARTH Insulin Human Isoph/Insulin Regular (Novolin 70/30 Inj) 30 units SQ BID SIDDHARTH Non-Formulary Medication (Atorvastatin) 40 mg PO DAILY SIDDHARTH Allergies Allergy/AdvReac Type Severity Reaction Status Date / Time No Known Allergies Allergy none Uncoded 07/21/18 12:38 Home Medications Medication Instructions Recorded Confirmed Type ascorbic acid (vitamin C) [Vitamin 1,000 mg PO DAILY 07/21/18 07/21/18 History C] atorvastatin 40 mg PO DAILY 07/21/18 07/21/18 History clopidogrel [Plavix] 75 mg PO DAILY 07/21/18 07/21/18 History cyanocobalamin (vitamin B-12) 3,000 mcg PO DAILY 07/21/18 07/21/18 History [Vitamin B-12] dabigatran etexilate [Pradaxa] 150 mg PO BID 07/21/18 07/21/18 History hydrochlorothiazide 25 mg PO DAILY 07/21/18 07/21/18 History insulin NPH and regular human 30 unit SUBCUT BID 07/21/18 07/21/18 History [Novolin 70/30 U-100 Insulin] metoprolol tartrate 100 mg PO BID 07/21/18 07/21/18 History pregabalin [Lyrica] 150 mg PO BID 07/21/18 07/21/18 History Exam Vital signs: Vital Signs 07/21/18 12:34 07/21/18 12:54 07/21/18 14:19 Temperature 97.7 F Pulse Rate 65 65 65 Respiratory Rate 16 18 Blood Pressure 138/70 137/59 L Pulse Oximetry 97 96 96 Intake & Output 07/20/18 07/21/18 07/21/18 18:59 06:59 18:59 Intake Total 50 / 50 Balance 50 / 50 Weight 100 kg Intake: IV 50 / 50 Zosyn 3.375 GM Premix 50 ML @ 50 / 50 100 mls/hr IV.SIG ONCE ONE Rx#: [id number] - Constitutional no acute distress - Routine HEENT Exam Eye: Present: PERRL - Routine Neck Exam Present: supple - Routine Respiratory Exam Present: CTA bilaterally - Routine Cardiovascular Exam Present: RRR - Routine Abdominal Exam Present: soft - Routine Extremities Exam Comments: right second toe is swollen,red with some whitish discharge. - Routine Neurological Exam Present: alert, oriented X3 Results - Labs CBC & Chem 7: 07/21/18 13:15 07/21/18 13:15 Labs: Short CBC 07/21/18 Range/Units 13:15 WBC 8.2 (4.0-11.0) th/mm3 Hgb 14.6 (13.0-17.0) gm/dL Hct 43.3 (39.0-51.0) % Plt Count 216 (150-450) th/mm3 BMP 07/21/18 13:15 Sodium 134 L Potassium 4.2 Chloride 99 Carbon Dioxide 27.1 BUN 24 H Creatinine 1.20 Calcium 9.0 Liver Function 07/21/18 Range/Units 13:15 Total Bilirubin 1.1 H (0.2-1.0) mg/dL AST 18 (15-37) U/L ALT 25 (12-78) U/L Alkaline Phosphatase 109 (45-117) U/L Albumin 3.7 (3.4-5.0) g/dL - Imaging Impressions Foot X-Ray 07/21/18 12:54 CONCLUSION: Osteomyelitis is suspected in head of the first metatarsal and probably second metatarsal. Caprini VTE Risk Assessment Caprini VTE Risk Assessment: Moderate/High Risk (score >= 2) Caprini Risk Assessment Model: Point Value = 1 Point Value = 2 Point Value = 3 Point Value = 5 Age 41-60 Minor surgery BMI > 25 kg/m2 Swollen legs Varicose veins or History of unexplained or recurrent spontaneous Oral contraceptives or hormone replacement Sepsis (< 1 month) Serious lung disease, including pneumonia (< 1 month) Abnormal pulmonary function Acute myocardial infarction Congestive heart failure (< 1 month) History of inflammatory bowel disease Medical patient at bed rest Age 61-74 Arthroscopic surgery Major open surgery (> 45 min) Laparoscopic surgery (> 45 min) Malignancy Confined to bed (> 72 hours) Immobilizing plaster cast Central venous access Age >= 75 History of VTE Family history of VTE Factor V Leiden Prothrombin [id number] Lupus anticoagulant Anticardiolipin antibodies Elevated serum homocysteine Heparin-induced thrombocytopenia Other congenital or acquired thrombophilia Stroke (< 1 month) Elective arthroplasty Hip, pelvis, or leg fracture Acute spinal cord injury (< 1 month) Prophylaxis Regimen: Total Risk Factor Score Risk Level Prophylaxis Regimen 0-1 Low Early ambulation 2 Moderate Order ONE of the following: *Sequential Compression Device (SCD) *Heparin 5000 units SQ BID 3-4 Higher Order ONE of the following medications: *Heparin 5000 units SQ TID *Enoxaparin/Lovenox 40 mg SQ daily (WT < 150 kg, CrCl > 30 mL/min) *Enoxaparin/Lovenox 30 mg SQ daily (WT < 150 kg, CrCl > 10-29 mL/min) *Enoxaparin/Lovenox 30 mg SQ BID (WT < 150 kg, CrCl > 30 mL/min) AND/OR *Sequential Compression Device (SCD) 5 or more Highest Order ONE of the following medications: *Heparin 5000 units SQ TID (Preferred with Epidurals) *Enoxaparin/Lovenox 40 mg SQ daily (WT < 150 kg, CrCl > 30 mL/min) *Enoxaparin/Lovenox 30 mg SQ daily (WT < 150 kg, CrCl > 10-29 mL/min) *Enoxaparin/Lovenox 30 mg SQ BID (WT < 150 kg, CrCl > 30 mL/min) AND *Sequential Compression Device (SCD) Assessment and Plan - Plan A/P - right diabetic foot infection continue with broad-spectrum IV antibiotics and follow the cultures- will consult podiatry. -diabetes mellitus resume home insulin regimen-start on accu-check with SSI -a-fib resume Metoprolol- hold Plavix and Pradaxa till podiatry evaluation -history of colon cancer Discussed Condition With: ER physician and the patient.
[2018-07-21] MEDS: Insulin NovoLOG Aspart Correctional Sugar Inj SQ SCH ×2 (16:56→21:07)
--- NOTE | 2018-07-21 17:45 | MB ---
cc: Azam Calles DPM DATE: 07/21/2018 REASON FOR CONSULTATION: Right second digit foot infection. HISTORY OF PRESENT ILLNESS: This is a 72-year-old male with a history of diabetes, atrial fibrillation, colon cancer, status post left iqpbg-wci-yehi amputation, who presented to the ER with worsening redness of his right foot, specifically his right second toe. It started to progress and become more painful over the last 3-4 days. Blood sugars have been running higher. He is seen today with his . Of note, he was seen by Dr. Xena Wheeler within the last 2 weeks and there was noted to be good Doppler flow. I spoke with Wanda Gentile, Dr. Wheeler's partner who verified an office note stating that the flow was within healing range. PAST MEDICAL HISTORY: As previously stated, a pacemaker, urinary retention, hypertension, atrial fibrillation. PAST SURGICAL HISTORY: History of BKA left. History of tonsillectomy, history of colon surgery. SOCIAL HISTORY: No smoking, no habits. ALLERGIES: NONE listed. OUTPATIENT MEDICATIONS: The patient does take clopidogrel. Please see complete list in chart. Active inpatient medications is receiving vancomycin and Zosyn. Please see complete medication list in chart. PHYSICAL EXAMINATION: VITAL SIGNS: Temperature 97.7, pulse rate 65, respiratory rate 16, blood pressure 138/70, the patient is saturating 97% on room air. GENERAL: This is alert and oriented gentleman seen at bedside exhibiting nonlabored respirations. EXTREMITIES: Left lower extremity has a well-healed left bbdqz-nuo-aglz amputation. Right lower extremity, there is an absent hallux. There is a severely contracted right second digit with evidence of a callus formation, a partial thickness ulcer that appears to probe deep. There is redness that extends to the dorsal aspect of the foot. Pulses are hard to palpate, but they appear to be intact. There is good capillary fill time to digits 3, 4, and 5. There is noted to be a dried subungual hematoma of the left third digit. It appears to be uncomplicated. Sensation significantly decreased to light touch, but intact to deep pressure. There is good muscle strength, good range of motion of forefoot, hindfoot and ankle. LABORATORY DATA: White blood cell 8.2, hemoglobin and hematocrit 14 and 43, platelet count is 216. ESR 28. Coagulation profile: PT 13.2, INR 1.3. Chem-7: Sodium 134, potassium 4.2, chloride 99, CO2 27.1. BUN is 24, creatinine 1.2, random glucose 283, AST 18, ALT 25. C-reactive protein elevated at 3.28. X-ray most consistent with osteomyelitis of the first metatarsal head; however, this does not correlate. There is mention of possible bony erosive process of the second metatarsal head when compared to old films. A CT ordered to verify. ASSESSMENT AND PLAN: Right second digit ulcer, hammertoe 2nd digit, cellulitis, possible osteomyelitis. The plan is for a CT to further visualize in greater detail the extent of bone infection. The patient will at minimum need a second digit amputation, possible second metatarsal head resection, if deemed appropriate. As previously stated, I spoke with Dr. Wanda Gentile, a vascular doctor at [facility] who verified by telephone of the last office note from Dr. Wheeler and we attempted to fax notes and thisshould be in the patient's chart, verifying Last Doppler flow was within the healing range. The patient will be ordered n.p.o. after midnight. Surgery will likely take place tomorrow. I will sign out to Dr. Mata. EZ Queen/nubia , 04:42 PM , 04:53 PM GREG
--- NOTE | 2018-07-21 20:05 | CT ---
EXAM DATE: 07/21/2018 5:53 PM EDT AGE/SEX: 72 years / Male INDICATIONS: Evaluate for osteomyelitis. Ulcer located on the distal portion of second phalange of r ight foot. CLINICAL DATA: This is the patient's subsequent encounter. Patient reports that signs and symptoms h ave been present for 2 days and indicates a pain score of 7/10. MEDICAL/SURGICAL HISTORY: Hypertension. Diabetes. Pacemaker. Left below the knee amputation. Right great toe amputation. RADIATION DOSE: 6.16 CTDI (mGy) COMPARISON: No prior exams available for comparison. TECHNIQUE: Multiple contiguous axial images were acquired using a multirow detector CT scanner after the intravenous administration of 100 ml Omnipaque 350 (iohexol) nonionic water-soluble contrast as a single exam dose. Multiplanar reconstruction was performed in the sagittal and coronal planes. U sing automated exposure control and adjustment of the mA and/or kV according to patient size, radiati on dose was kept as low as reasonably achievable to obtain optimal diagnostic quality images. DICOM format image data is available electronically for review and comparison. FINDINGS: No lytic bony destructive changes are seen to suggest osteomyelitis. There is some chronic appearing deformity of the first metatarsal head. The distal phalanx of the second toe is hypoplastic and hyper flexed but without discrete bony erosions seen. There is moderate osteoarthritis throughout with vasc ular calcifications. No discrete abscess. CONCLUSION: 1. No CT findings of acute osteomyelitis. Degenerative changes as above. Electronically signed by: Sukhi Woods MD 07/21/2018 8:04 PM EDT
[2018-07-21] MEDS: Metoprolol Tartrate 100 MG Tablet PO SCH (21:02)
[2018-07-21] MEDS: Piperacil/Tazo 3.375 GM Premix 50 ML IV.SIG SCH (21:02)
[2018-07-21] MEDS: Pregabalin 75 MG Capsule PO SCH (21:02)
[2018-07-22] MEDS: Piperacil/Tazo 3.375 GM Premix 50 ML IV.SIG SCH ×3 (05:26→21:47)
[2018-07-22] MEDS ORDERED: Vancomycin Inj 1,000 MG in Sodium Chlor 0.9% Inj 250 ML IV.SIG SCH (08:00)
[2018-07-22] MEDS: Pregabalin 75 MG Capsule PO SCH ×2 (08:32→21:47)
[2018-07-22] MEDS: hydroCHLOROthiazide 25 MG Tablet PO SCH (08:32)
[2018-07-22] MEDS: Metoprolol Tartrate 100 MG Tablet PO SCH ×2 (08:33→21:51)
--- NOTE | 2018-07-22 08:34 | P.PNIM ---
Subjective Interval history: f/u; right foot infection in no acute distress. pain is controlled. no fever. no other complaints. Physical Exam Vital signs: Vital Signs 07/21/18 12:34 07/21/18 12:54 07/21/18 14:19 Temperature 97.7 F Pulse Rate 65 65 65 Respiratory Rate 16 18 Blood Pressure 138/70 137/59 L Pulse Oximetry 97 96 96 07/21/18 16:00 07/21/18 20:00 07/22/18 00:00 Temperature 97.6 F 97.3 F L 97.6 F Pulse Rate 64 80 61 Respiratory Rate 20 16 16 Blood Pressure 167/76 H 133/70 131/68 Pulse Oximetry 95 98 98 Intake & Output 07/21/18 07/22/18 07/22/18 18:59 06:59 18:59 Intake Total 300 / 300 590 / 590 Output Total 500 / 500 Balance 300 / 300 90 / 90 Weight 100 kg 97.5 kg Intake: IV 300 / 300 350 / 350 Zosyn 3.375 GM Premix 50 ML @ 50 / 50 100 / 100 100 mls/hr IV.SIG Q8H SIDDHARTH Rx#: [id number] Vancomycin Inj 1,000 MG In NS 250 / 250 250 / 250 Inj 250 ML @ 250 mls/hr IV.SIG ONCE ONE Rx#:[id number] Oral 240 / 240 Output: Urine 500 / 500 Other: # Voids 1 - Constitutional no acute distress - Routine Respiratory Exam Present: CTA bilaterally - Routine Cardiovascular Exam Present: RRR - Routine Abdominal Exam Present: soft - Routine Extremities Exam Comments: erythema and swelling of the right foot/ right second toe. - Routine Neurological Exam Present: alert, oriented X3 Results - Labs CBC & Chem 7: 07/21/18 13:15 07/22/18 06:50 Laboratory Results - last 24 hr 07/21/18 07/21/18 07/21/18 13:00 13:15 13:15 CBC w Diff Auto diff final WBC 8.2 RBC 4.92 Hgb 14.6 Hct 43.3 MCV 88.0 MCH 29.6 MCHC 33.7 RDW 12.7 Plt Count 216 MPV 8.2 Neut % (Auto) 76.5 H Lymph % (Auto) 11.7 [place] % (Auto) 7.7 Eos % (Auto) 1.8 Baso % (Auto) 2.3 H Neut # (Auto) 6.3 Lymph # (Auto) 1.0 [place] # (Auto) 0.6 Eos # (Auto) 0.1 Baso # (Auto) 0.2 WBC Differential . Differential Comment . ESR PT 13.2 H INR 1.3 APTT 43.2 H Sodium Potassium Chloride Carbon Dioxide Anion Gap BUN Creatinine Estimated GFR POC Glucose 283 H Random Glucose Lactic Acid Calcium Total Bilirubin AST ALT Alkaline Phosphatase C-Reactive Protein Total Protein Albumin 07/21/18 07/21/18 07/21/18 13:15 13:15 13:15 CBC w Diff WBC RBC Hgb Hct MCV MCH MCHC RDW Plt Count MPV Neut % (Auto) Lymph % (Auto) [place] % (Auto) Eos % (Auto) Baso % (Auto) Neut # (Auto) Lymph # (Auto) [place] # (Auto) Eos # (Auto) Baso # (Auto) WBC Differential Differential Comment ESR 28 H PT INR APTT Sodium 134 L Potassium 4.2 Chloride 99 Carbon Dioxide 27.1 Anion Gap 8 BUN 24 H Creatinine 1.20 Estimated GFR 60 L POC Glucose Random Glucose 282 H Lactic Acid 1.5 Calcium 9.0 Total Bilirubin 1.1 H AST 18 ALT 25 Alkaline Phosphatase 109 C-Reactive Protein 3.28 H Total Protein 7.5 Albumin 3.7 07/21/18 07/21/18 07/22/18 16:50 21:06 06:50 CBC w Diff WBC RBC Hgb Hct MCV MCH MCHC RDW Plt Count MPV Neut % (Auto) Lymph % (Auto) [place] % (Auto) Eos % (Auto) Baso % (Auto) Neut # (Auto) Lymph # (Auto) [place] # (Auto) Eos # (Auto) Baso # (Auto) WBC Differential Differential Comment ESR PT INR APTT Sodium Potassium Chloride Carbon Dioxide Anion Gap BUN Creatinine 1.10 Estimated GFR 66 L POC Glucose 284 H 221 H Random Glucose Lactic Acid Calcium Total Bilirubin AST ALT Alkaline Phosphatase C-Reactive Protein Total Protein Albumin 07/22/18 07:45 CBC w Diff WBC RBC Hgb Hct MCV MCH MCHC RDW Plt Count MPV Neut % (Auto) Lymph % (Auto) [place] % (Auto) Eos % (Auto) Baso % (Auto) Neut # (Auto) Lymph # (Auto) [place] # (Auto) Eos # (Auto) Baso # (Auto) WBC Differential Differential Comment ESR PT INR APTT Sodium Potassium Chloride Carbon Dioxide Anion Gap BUN Creatinine Estimated GFR POC Glucose 134 H Random Glucose Lactic Acid Calcium Total Bilirubin AST ALT Alkaline Phosphatase C-Reactive Protein Total Protein Albumin - Imaging Impressions Foot CT 07/21/18 00:00 CONCLUSION: 1. No CT findings of acute osteomyelitis. Degenerative changes as above. Foot X-Ray 07/21/18 12:54 CONCLUSION: Osteomyelitis is suspected in head of the first metatarsal and probably second metatarsal. Assessment and Plan - Plan A/P - right diabetic foot infection continue with broad-spectrum IV antibiotics and follow the cultures- podiatry consulted and the plan for surgery today. -diabetes mellitus resumed home insulin regimen-started on accu-check with SSI -a-fib resume Metoprolol- hold Plavix and Pradaxa - for planned surgery. -history of colon cancer Discharge Planning: awaiting surgical intervention.
[2018-07-22] MEDS: Insulin NovoLOG Aspart Correctional Sugar Inj SQ SCH ×4 (08:35→21:45)
[2018-07-22] MEDS: Vancomycin Inj 2,000 MG in Sodium Chlor 0.9% Inj 500 ML IV.SIG SCH (09:14)
[2018-07-22] MEDS ORDERED: fentaNYL Citrate Inj 100 MCG/2 ML Ampul ONE (14:01)
[2018-07-22] MEDS ORDERED: Dextrose 5%/Lactated Ringer's 1,000 ML ONE (14:18)
[2018-07-22] MEDS ORDERED: Metoprolol Tartrate 25 MG Tablet PO ONE (14:22)
[2018-07-22] MEDS ORDERED: Chlorhexidine Gluconate 2% 1 Pack (2 Cloths) TOPICAL ONE (14:22)
[2018-07-22] MEDS ORDERED: Sodium Chlor 0.9% Inj 500 ML IV.SIG SCH (15:00)
[2018-07-22] MEDS ORDERED: Bupivacaine PF 0.5% Inj 30 ML Vial ONE (15:15)
[2018-07-22] MEDS ORDERED: Lidocaine PF 1% Inj 5 ML Syringe INFILTRATN ONE (15:28)
--- NOTE | 2018-07-22 15:51 | P.BOP ---
- Preoperative Diagnosis (1) Cellulitis of toe of right foot - Postoperative Diagnosis (1) Cellulitis of toe of right foot Date of procedure: 07/22/18 Procedure: 1. amputation right distal 2nd toe Discussed with patient no true erythema, no warmth, minimal edema to forefoot and ok with attempt at partial amputation of right 2nd toe and not complete amputation of toe due to his history of BKA on left side and importance of salvage of as much of his remaining foot as possible. Disarticulation of distal digit at proximal interphalangeal joint. Bone exposed with purulence to distal aspect of toe. No purulence noted at level of amputation and some bleeding noted to tissue. Closure with 2-0 and 3-0 nylon, xeroform, 4x4, cast padding, abd, ernie. No tourniquet utilized. Disposition: No further surgery planned. Infected tissue removed completely with surgery. Ok with discharge on oral antibiotics x 14 days per cultures and follow up in 1 week for dressing change in my clinic. Weightbearing as tolerated in surgical shoe right foot. Anesthesia: MAC, local (10mL 0.5% marcaine plain) Surgeon: Ceci Mata DPM Abstract Maker: staff Estimated blood loss (mL): 2 Pathology: other (1. partial right 2nd toe, 2. culture right 2nd toe) Condition: stable Disposition: PACU
[2018-07-22] MEDS ORDERED: Naloxone Inj 0.4 MG/ML Vial ONE (16:03)
--- NOTE | 2018-07-22 18:50 | XR ---
EXAM DATE: 07/22/2018 12:00 AM EDT AGE/SEX: 72 years / Male INDICATIONS: Right foot post-op. CLINICAL DATA: This is the patient's subsequent encounter. Patient reports that signs and symptoms h ave been present for 1 day and indicates a pain score of 0/10. MEDICAL/SURGICAL HISTORY: . Diabetes. Hypertension. A-fib. . Urinary retention. Pacemaker. Ton sillectomy. Colon surgery. 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 COMPARISON: [facility], FOOT COMPLETE RIGHT 3V, 07/21/2018. . FINDINGS: There is interval amputation of the second toe at the proximal interphalangeal joint. Irregularity no sidney at the first metatarsal head. Vascular calcifications are present. No other acute findings. CONCLUSION: Amputation of the second toe proximal interphalangeal joint. Previous amputation of the great toe. Electronically signed by: Sukhi Woods MD 07/22/2018 6:49 PM EDT
[2018-07-23] MEDS ORDERED: Morphine Inj 4 MG/ML Vial IV.PUSH ONE ×2 (01:22→22:18)
[2018-07-23] MEDS: Vancomycin Inj 2,000 MG in Sodium Chlor 0.9% Inj 500 ML IV.SIG SCH ×2 (01:42→21:11)
[2018-07-23] MEDS: Piperacil/Tazo 3.375 GM Premix 50 ML IV.SIG SCH ×3 (05:17→20:28)
[2018-07-23] MEDS: Insulin NovoLOG Aspart Correctional Sugar Inj SQ SCH ×4 (08:05→20:39)
[2018-07-23] MEDS: Metoprolol Tartrate 100 MG Tablet PO SCH ×2 (09:20→20:27)
[2018-07-23] MEDS: hydroCHLOROthiazide 25 MG Tablet PO SCH (09:20)
[2018-07-23] MEDS: Pregabalin 75 MG Capsule PO SCH ×2 (09:20→20:27)
--- NOTE | 2018-07-23 10:01 | P.PNIM ---
Subjective Interval history: f/u; right foot infection in no acute distress. pain is fairly controlled although he says that at times the pain is moderate. no fever. no new complaints. d/w the RN. Physical Exam Vital signs: Vital Signs 07/22/18 12:00 07/22/18 13:50 07/22/18 15:15 Temperature 96.8 F L 97.9 F Pulse Rate 65 66 Respiratory Rate 16 18 12 Blood Pressure 144/71 H 156/83 H Pulse Oximetry 97 98 07/22/18 15:54 07/22/18 16:04 07/22/18 16:15 Temperature 97.6 F Pulse Rate 65 65 65 Respiratory Rate 14 14 Blood Pressure 96/56 L 142/69 H Pulse Oximetry 95 100 07/22/18 16:30 07/22/18 16:45 07/22/18 17:15 Temperature 97.4 F L 94.6 F L Pulse Rate 65 65 65 Respiratory Rate 14 14 15 Blood Pressure 128/71 145/71 H 156/74 H Pulse Oximetry 100 97 98 07/22/18 17:59 07/22/18 20:00 07/22/18 21:55 Temperature 96.2 F L Pulse Rate 65 Respiratory Rate 20 Blood Pressure 143/65 H Pulse Oximetry 98 96 97 07/23/18 00:00 07/23/18 09:17 Temperature 97.7 F Pulse Rate 65 Respiratory Rate 20 Blood Pressure 121/63 Pulse Oximetry 95 94 L Intake & Output 07/22/18 07/23/18 07/23/18 18:59 06:59 18:59 Intake Total 2221 / 2221 600 / 600 0 / 0 Output Total 650 / 650 Balance 2221 / 2221 -50 / -50 0 / 0 Weight 98 kg Intake: IV 1120 / 1120 600 / 600 0 / 0 D5W/LR Inj 1,000 ML @ 0 mls/hr 550 / 550 .ROUTE .STK-MED ONE Rx#: [id number] Zosyn 3.375 GM Premix 50 ML @ 50 / 50 100 / 100 100 mls/hr IV.SIG Q8H SIDDHARTH Rx#: [id number] Vancomycin Inj 2,000 MG In NS 520 / 520 500 / 500 0 / 0 Inj 500 ML @ 250 mls/hr IV.SIG Q18H SIDDHARTH Rx#:[id number] Oral 240 / 240 Other 861 / 861 Output: Urine 650 / 650 Other: Other Intake Source Saline Solution # Voids 3 - Constitutional no acute distress - Routine Respiratory Exam Present: CTA bilaterally - Routine Cardiovascular Exam Present: RRR - Routine Abdominal Exam Present: soft - Routine Extremities Exam Comments: right foot covered with clean dressing. - Routine Neurological Exam Present: alert, oriented X3 Results - Labs CBC & Chem 7: 07/21/18 13:15 07/22/18 06:50 Laboratory Results - last 24 hr 07/22/18 07/22/18 07/22/18 11:53 13:51 16:06 POC Glucose 106 83 159 H 07/22/18 07/22/18 07/23/18 17:17 21:42 07:52 POC Glucose 133 H 175 H 165 H Microbiology 07/21/18 13:20 Blood - Peripheral Aerobic Blood Culture - Preliminary No growth in 1 day 07/21/18 13:20 Blood - Peripheral Anaerobic Blood Culture - Preliminary No growth in 1 day 07/21/18 13:15 Blood - Peripheral Aerobic Blood Culture - Preliminary No growth in 1 day 07/21/18 13:15 Blood - Peripheral Anaerobic Blood Culture - Preliminary No growth in 1 day - Imaging Impressions Foot X-Ray 07/22/18 00:00 CONCLUSION: Amputation of the second toe proximal interphalangeal joint. Previous amputation of the great toe. Assessment and Plan - Plan A/P - right diabetic foot infection continue with broad-spectrum IV antibiotics and follow the cultures- podiatry consulted - s/p amputation of the right second toe. -diabetes mellitus resumed home insulin regimen-started on accu-check with SSI -a-fib resume Metoprolol- resume Plavix and Pradaxa when ok with surgery. -history of colon cancer Discharge Planning: dc home within the next 24-48 hrs-pending the cultures.
--- NOTE | 2018-07-23 10:33 | P.PNPOD ---
Subjective Interval history: s/p amputation distal right 2nd toe 07/22/18 Dr Mata Physical Exam Vital signs: Vital Signs 07/22/18 12:00 07/22/18 13:50 07/22/18 15:15 Temperature 96.8 F L 97.9 F Pulse Rate 65 66 Respiratory Rate 16 18 12 Blood Pressure 144/71 H 156/83 H Pulse Oximetry 97 98 07/22/18 15:54 07/22/18 16:04 07/22/18 16:15 Temperature 97.6 F Pulse Rate 65 65 65 Respiratory Rate 14 14 Blood Pressure 96/56 L 142/69 H Pulse Oximetry 95 100 07/22/18 16:30 07/22/18 16:45 07/22/18 17:15 Temperature 97.4 F L 94.6 F L Pulse Rate 65 65 65 Respiratory Rate 14 14 15 Blood Pressure 128/71 145/71 H 156/74 H Pulse Oximetry 100 97 98 07/22/18 17:59 07/22/18 20:00 07/22/18 21:55 Temperature 96.2 F L Pulse Rate 65 Respiratory Rate 20 Blood Pressure 143/65 H Pulse Oximetry 98 96 97 07/23/18 00:00 07/23/18 08:00 07/23/18 09:17 Temperature 97.7 F 100.4 F H Pulse Rate 65 65 Respiratory Rate 20 18 Blood Pressure 121/63 137/64 Pulse Oximetry 95 96 94 L Intake & Output 07/22/18 07/23/18 07/23/18 18:59 06:59 18:59 Intake Total 2221 / 2221 600 / 600 0 / 0 Output Total 650 / 650 Balance 2221 / 2221 -50 / -50 0 / 0 Weight 98 kg Intake: IV 1120 / 1120 600 / 600 0 / 0 D5W/LR Inj 1,000 ML @ 0 mls/hr 550 / 550 .ROUTE .STK-MED ONE Rx#: [id number] Zosyn 3.375 GM Premix 50 ML @ 50 / 50 100 / 100 100 mls/hr IV.SIG Q8H [facility] Rx#: [id number] Vancomycin Inj 2,000 MG In NS 520 / 520 500 / 500 0 / 0 Inj 500 ML @ 250 mls/hr IV.SIG Q18H [facility] Rx#:[id number] Oral 240 / 240 Other 861 / 861 Output: Urine 650 / 650 Other: Other Intake Source Saline Solution # Voids 3 Narrative: Bandage clean, dry, intact right foot Medications and Allergies Active Medications: Active Medications Acetaminophen (Tylenol) 650 mg PO Q4H PRN PRN Reason: fever/pain 1-5 Hydrocodone Bitart/Acetaminophen ([place] 5/325) 1 tab PO Q4H PRN PRN Reason: pain 6-10 Atorvastatin Calcium (Lipitor) 40 mg PO DAILY [facility] Last Admin: 07/23/18 09:20 Dose: 40 mg Dextrose (D50w Vial) 50 ml IV.PUSH UNSCH PRN PRN Reason: PER HYPOGLYCEMIA PROTOCOL Glucagon (Glucagon Inj) 1 mg OTHER PRN PRN PRN Reason: for Hypoglycemia Protocol Hydrochlorothiazide (Hydrodiuril) 25 mg PO DAILY [facility] Last Admin: 07/23/18 09:20 Dose: 25 mg Piperacillin/Tazobactam/Dextrose (Zosyn 3.375 Gm Premix) 50 mls @ 100 mls/hr IV.SIG Q8H [facility] Last Infusion: 07/23/18 05:53 Dose: Infused Vancomycin HCl 2,000 mg/ (Sodium Chloride) 520 mls @ 250 mls/hr IV.SIG Q18H [facility] Last Infusion: 07/23/18 09:39 Dose: Infused Lactated Ringer's (Lr 1000 Ml Inj) 1,000 mls @ 30 mls/hr IV.SIG .Q24H [facility] Stop: 07/23/18 14:29 Last Admin: 07/22/18 15:10 Dose: Not Given Sodium Chloride (Ns Inj) 500 mls @ 30 mls/hr IV.SIG .Q10H [facility] Last Admin: 07/22/18 15:10 Dose: Not Given Insulin Aspart (Novolog Insulin Correctional Sugar Inj) 0 unit SQ ACHS [facility]; Protocol Last Admin: 07/23/18 08:05 Dose: 1 unit Insulin Human Isoph/Insulin Regular (Novolin 70/30 Inj) 30 units SQ BID [facility] Last Admin: 07/22/18 08:33 Dose: 30 units Metoprolol Tartrate (Lopressor) 100 mg PO BID [facility] Last Admin: 07/23/18 09:20 Dose: 100 mg Miscellaneous Information ([facility] Ordered Lab Info) 0 each OTHER ONCE ONE Stop: 07/23/18 19:46 Miscellaneous Information ([facility] Nursing Information) 1 each OTHER UNSCH PRN PRN Reason: SEE LABEL COMMENTS Stop: 07/23/18 17:27 Pharmacy Profile Note (Vancomycin Consult Pharmacy) 1 each OTHER UNSCH PRN PRN Reason: Pharmacy to dose Pregabalin (Lyrica) 150 mg PO BID [facility] Last Admin: 07/23/18 09:20 Dose: 150 mg Allergies Allergy/AdvReac Type Severity Reaction Status Date / Time No Known Allergies Allergy Verified 07/22/18 13:50 Home Medications Medication Instructions Recorded Confirmed Type ascorbic acid (vitamin C) [Vitamin 1,000 mg PO DAILY 07/21/18 07/21/18 History C] atorvastatin 40 mg PO DAILY 07/21/18 07/21/18 History clopidogrel [Plavix] 75 mg PO DAILY 07/21/18 07/21/18 History cyanocobalamin (vitamin B-12) 3,000 mcg PO DAILY 07/21/18 07/21/18 History [Vitamin B-12] dabigatran etexilate [Pradaxa] 150 mg PO BID 07/21/18 07/21/18 History hydrochlorothiazide 25 mg PO DAILY 07/21/18 07/21/18 History insulin NPH and regular human 30 unit SUBCUT BID 07/21/18 07/21/18 History [Novolin 70/30 U-100 Insulin] metoprolol tartrate 100 mg PO BID 07/21/18 07/21/18 History pregabalin [Lyrica] 150 mg PO BID 07/21/18 07/21/18 History Results - Labs CBC & Chem 7: 07/21/18 13:15 07/22/18 06:50 Laboratory Results - last 24 hr 07/22/18 07/22/18 07/22/18 11:53 13:51 16:06 POC Glucose 106 83 159 H 07/22/18 07/22/18 07/23/18 17:17 21:42 07:52 POC Glucose 133 H 175 H 165 H Microbiology 07/21/18 13:20 Blood - Peripheral Aerobic Blood Culture - Preliminary No growth in 1 day 07/21/18 13:20 Blood - Peripheral Anaerobic Blood Culture - Preliminary No growth in 1 day 07/21/18 13:15 Blood - Peripheral Aerobic Blood Culture - Preliminary No growth in 1 day 07/21/18 13:15 Blood - Peripheral Anaerobic Blood Culture - Preliminary No growth in 1 day - Imaging Impressions Foot X-Ray 07/22/18 00:00 CONCLUSION: Amputation of the second toe proximal interphalangeal joint. Previous amputation of the great toe. Assessment and Plan - Assessment (1) Acute osteomyelitis of toe of right foot Code(s): M86.171 - Other acute osteomyelitis, right ankle and foot Status: Acute Plan: Ok with discharge on broad spectrum oral antibiotics x 2 weeks All infected tissue was removed intraoperatively. Clear for discharge from podiatry when cleared by PT Follow up next week for dressing change in clinic and keep current bandage clean , dry, intact until then. Weightbearing as tolerated in surgical shoe right foot
[2018-07-23] MEDS ORDERED: Polyethylene Glycol 3350 17 GM Packet PO PRN (16:22)
[2018-07-23] MEDS ORDERED: Polyethylene Glycol 3350 17 GM Packet PO ONE (16:30)
[2018-07-23 16:41] VITALS: PULSE 65
[2018-07-23] MEDS ORDERED: Pharmacy Ordered Lab Info OTHER ONE (19:45)
[2018-07-24 00:13] VITALS: TEMP 97.3
[2018-07-24] MEDS: Piperacil/Tazo 3.375 GM Premix 50 ML IV.SIG SCH (05:09)
[2018-07-24] MEDS: hydroCHLOROthiazide 25 MG Tablet PO SCH (08:42)
[2018-07-24] MEDS: Insulin NovoLOG Aspart Correctional Sugar Inj SQ SCH (08:42)
[2018-07-24] MEDS: Metoprolol Tartrate 100 MG Tablet PO SCH (08:42)
[2018-07-24] MEDS: Pregabalin 75 MG Capsule PO SCH (08:42)
[2018-07-24] MEDS ORDERED: Vancomycin Inj 1,250 MG in Sodium Chlor 0.9% Inj 250 ML IV.SIG SCH (09:00)
[2018-07-24 09:03] VITALS: BP 144/66; RESP 18; O2SAT 98
--- NOTE | 2018-07-24 10:10 | P.PNIM ---
Subjective Interval history: f/u; right foot infection in no acute distress. no fever. pain is controlled. no new complaints. Physical Exam Vital signs: Vital Signs 07/23/18 12:00 07/23/18 13:46 07/23/18 16:00 Temperature 98.1 F 98.4 F Pulse Rate 63 65 Respiratory Rate 18 18 18 Blood Pressure 137/61 133/63 Pulse Oximetry 96 97 07/23/18 20:00 07/23/18 20:07 07/23/18 23:07 Temperature 96.3 F L Pulse Rate 65 Respiratory Rate 20 20 Blood Pressure 153/71 H Pulse Oximetry 98 96 07/24/18 00:00 07/24/18 00:48 07/24/18 08:00 Temperature 97.3 F L 97.3 F L Pulse Rate 65 65 Respiratory Rate 20 20 18 Blood Pressure 138/65 144/66 H Pulse Oximetry 96 98 Intake & Output 07/23/18 07/24/18 07/24/18 18:59 06:59 18:59 Intake Total 50 / 50 860 / 860 Output Total 1600 / 1600 Balance 50 / 50 -740 / -740 Weight 98.1 kg Intake: IV 50 / 50 620 / 620 Zosyn 3.375 GM Premix 50 ML @ 50 / 50 100 / 100 100 mls/hr IV.SIG Q8H [facility] Rx#: [id number] Vancomycin Inj 2,000 MG In NS 0 / 0 520 / 520 Inj 500 ML @ 250 mls/hr IV.SIG Q18H [facility] Rx#:[id number] Oral 240 / 240 Output: Urine Amount (Catheter) 1600 / 1600 Straight 1600 / 1600 Other: # Voids 5 1 Date of Last Bowel Movement 07/22/18 07/22/18 # Bowel Movements 0 - Constitutional no acute distress - Routine Respiratory Exam Present: CTA bilaterally - Routine Cardiovascular Exam Present: RRR - Routine Abdominal Exam Present: soft - Routine Extremities Exam Comments: right foot covered with clean dressing. - Routine Neurological Exam Present: alert, oriented X3 - Urinary Catheter Management Straight Cath placed during this visit: no Results - Labs CBC & Chem 7: 07/21/18 13:15 07/24/18 07:25 Laboratory Results - last 24 hr 07/23/18 07/23/18 07/23/18 11:34 16:35 20:26 Creatinine Estimated GFR POC Glucose 234 H 227 H Vancomycin Trough 12.8 H 07/23/18 07/24/18 07/24/18 20:33 07:25 08:31 Creatinine 1.10 Estimated GFR 66 L POC Glucose 227 H 255 H Vancomycin Trough Microbiology 07/22/18 17:00 Tissue - Toe Acid Fast Bacilli Smear - Final No acid fast bacilli seen 07/22/18 17:00 Tissue - Toe Fungal Smear - Final No fungal elements seen 07/22/18 17:00 Tissue - Toe Gram Stain - Final 07/21/18 13:20 Blood - Peripheral Aerobic Blood Culture - Preliminary No growth in 2 days 07/21/18 13:20 Blood - Peripheral Anaerobic Blood Culture - Preliminary No growth in 2 days 07/21/18 13:15 Blood - Peripheral Aerobic Blood Culture - Preliminary No growth in 2 days 07/21/18 13:15 Blood - Peripheral Anaerobic Blood Culture - Preliminary No growth in 2 days Assessment and Plan - Plan A/P - right diabetic foot infection continue with broad-spectrum IV antibiotics and follow the cultures- will switch to po upon discharge; Cipro and Clindamycin per podiatry recommendations. podiatry consulted - s/p amputation of the right second toe. -diabetes mellitus resumed home insulin regimen-started on accu-check with SSI -a-fib resume Metoprolol- resume Plavix and Pradaxa ; ok with podiatry. -history of colon cancer Discharge Planning: d/w ; will dc home with oral antibiotics for ten days with f/u in the clinic next week. f/u; pcp and podiatry. see med list. d/w the patient. Margarette was consulted prior to discharge.
--- NOTE | 2018-07-24 10:17 | P.DS ---
Date of admission: 07/21/18 14:38 Primary care physician: Brian Harris MD Brief History from admission: patient is a 72 y/o male with history of diabetes,a-fib,colon cancer- s/p left BKA, who presented to ER with redness and swelling of the right second toe. he says that it started three-four days ago. pain is mild to moderate in intensity. he denies any fever or chills. he says that his blood sugar at home is ' on high side'. DS: Medications - Discharge Medications Prescriptions: ciprofloxacin HCl [Cipro] 500 mg PO Q12H 10 Days #20 tab clindamycin HCl 300 mg PO QID 10 Days #40 cap hydrocodone-acetaminophen 1 tab PO Q6H PRN #10 tab PRN Reason: acute pain DS: Summary Hospital Course: - right diabetic foot infection will switch to oral antibiotics upon discharge. podiatry consulted - s/p amputation of the right distal second toe. -diabetes mellitus resumed home insulin regimen-started on accu- -a-fib resume Metoprolol- resume Plavix and Pradaxa . -history of colon cancer - Time Spent with Patient Total time spent providing and/or coordinating discharge services: Less than 30 minutes - Quality: VTE Deep Vein Thrombosis/Pulmonary Embolism Present on Admission: No Exam Vital signs: Vital Signs 07/23/18 12:00 07/23/18 13:46 07/23/18 16:00 Temperature 98.1 F 98.4 F Pulse Rate 63 65 Respiratory Rate 18 18 18 Blood Pressure 137/61 133/63 Pulse Oximetry 96 97 07/23/18 20:00 07/23/18 20:07 07/23/18 23:07 Temperature 96.3 F L Pulse Rate 65 Respiratory Rate 20 20 Blood Pressure 153/71 H Pulse Oximetry 98 96 07/24/18 00:00 07/24/18 00:48 07/24/18 08:00 Temperature 97.3 F L 97.3 F L Pulse Rate 65 65 Respiratory Rate 20 20 18 Blood Pressure 138/65 144/66 H Pulse Oximetry 96 98 Intake & Output 07/23/18 07/24/18 07/24/18 18:59 06:59 18:59 Intake Total 50 / 50 860 / 860 Output Total 1600 / 1600 Balance 50 / 50 -740 / -740 Weight 98.1 kg Intake: IV 50 / 50 620 / 620 Zosyn 3.375 GM Premix 50 ML @ 50 / 50 100 / 100 100 mls/hr IV.SIG Q8H [facility] Rx#: [id number] Vancomycin Inj 2,000 MG In NS 0 / 0 520 / 520 Inj 500 ML @ 250 mls/hr IV.SIG Q18H [facility] Rx#:[id number] Oral 240 / 240 Output: Urine Amount (Catheter) 1600 / 1600 Straight 1600 / 1600 Other: # Voids 5 1 Date of Last Bowel Movement 07/22/18 07/22/18 # Bowel Movements 0 - Constitutional no acute distress - Routine Respiratory Exam Present: CTA bilaterally - Routine Cardiovascular Exam Present: RRR - Routine Abdominal Exam Present: soft - Routine Extremities Exam Comments: right foot covered with clean dressing. - Routine Neurological Exam Present: alert, oriented X3 Results Procedures completed during hospitalization: amputation of the right distal second toe. Labs on day of discharge: Labs from last 24 hours 07/24/18 07/24/18 07/23/18 08:31 07:25 20:33 Creatinine 1.10 Estimated GFR 66 L POC Glucose 255 H 227 H Vancomycin Trough 07/23/18 07/23/18 07/23/18 20:26 16:35 11:34 Creatinine Estimated GFR POC Glucose 227 H 234 H Vancomycin Trough 12.8 H Preliminary micro results at discharge 07/21/18 13:20 Aerobic Blood Culture - Preliminary Blood - Peripheral No growth in 2 days Anaerobic Blood Culture - Preliminary No growth in 2 days 07/21/18 13:15 Aerobic Blood Culture - Preliminary Blood - Peripheral No growth in 2 days Anaerobic Blood Culture - Preliminary No growth in 2 days - Impressions ITS Impressions Foot CT 07/21/18 00:00 CONCLUSION: 1. No CT findings of acute osteomyelitis. Degenerative changes as above. Foot X-Ray 07/22/18 00:00 CONCLUSION: Amputation of the second toe proximal interphalangeal joint. Previous amputation of the great toe. Discharge Plan - Discharge Disposition Patient Disposition: 01 Discharge Home - Discharge Condition Condition: Good - Physicians Team Primary Care Provider: Brian Harris Attending Provider: Darwin Khalil Other Providers: Azam Gould DPM
[2018-07-25] MEDS ORDERED: Pharmacy Ordered Lab Info OTHER ONE (08:45)
--- NOTE | 2018-07-27 19:23 | MP ---
cc: Ceci Mata DPM DATE OF OPERATION: 07/22/2018 INDICATIONS: This patient presented to the emergency room with a longstanding ulceration to the distal aspect of the second toe. He was noted to have on a CT scan, no actual changes that were noted consistent with osteomyelitis, but had a probe to bone positive to the distal phalanx of the right second toe. I discussed with the patient that due to his significantly good response to IV antibiotics and that he has a history of [id number] amputation on the opposite side, I agreed to salvage as much as possible and attempt an amputation of the distal aspect of the right second toe instead of a complete amputation due to his history of BKA. He agreed to move forward with surgery for amputation of right distal second toe. DESCRIPTION OF PROCEDURE: He was seen in preop holding by myself, nursing staff, and anesthesia, where the correct patient, side, and site were all confirmed to be correct and the right second toe. He was then taken to the surgical suite in supine position. The right foot was prepped and draped in normal sterile fashion. Following timeout as per facility protocol, the distal second toe was amputated at the level of the proximal interphalangeal joint and the tissue was found to be viable and healthy with minimal bleeding, but still some bleeding to that area of skin, followed by irrigation and closure primarily with 2-0 and 3-0 nylon, followed by dressing consisting of Xeroform, 4 x 4's, cast padding, ABD, and Omi bandage to the right foot. The patient will be weightbearing as tolerated to the right foot and surgical shoe. No further surgery is planned and he will follow up in 1 week for a dressing change in the clinic. SHORT OPERATIVE NOTE SURGEON: Ceci Mata DPM [employer]: Staff. PREOPERATIVE DIAGNOSIS: Cellulitis, right second toe. POSTOPERATIVE DIAGNOSIS: Cellulitis, right second toe. PROCEDURE PERFORMED: Amputation, right distal second toe. PATHOLOGY: 1. Culture right second toe. 2. Partial right second toe to pathology. PROPHYLAXIS: Already on IV antibiotics. ANESTHESIA: MAC plus local consisting of 10 mL of 0.5% Marcaine plain. ESTIMATED BLOOD LOSS: 2 mL COMPLICATIONS: None. CONDITION: Stable to PACU. DISPOSITION: No further surgery planned, weightbearing as tolerated to the right foot and surgical shoe. Followup in clinic in 1 week for a dressing change. Ceci Mata DPM isma , 05:57 PM , 06:04 PM
== END 2018-07-24 12:14 | disposition home or self-care (01) ==
LOC: PHEFT 12:28 → PHEDA 14:38 → PH3 16:04
PROVIDERS: ADMIT Internal Medicine; ATTEND Internal Medicine